=== PATIENT | female | born 1960 | race Caucasian/White ===

== ENCOUNTER 2018-11-06 11:44 | Day surgery (SDC) | payer BC ==
[2018-11-06] MEDS ORDERED: LACTATED RINGERS 1,000 ML IV SCH (12:06)
[2018-11-06 12:20] VITALS: RESP 16; TEMP 98.3
[2018-11-06] MEDS ORDERED: LIDOCAINE 1% 20 ML VIAL (10MG/ML) FOR IV START INTRADERMA ONE (12:28)
[2018-11-06] MEDS ORDERED: LIDOCAINE 1% INJ 10MG/ML (20 ML MDV) ONE (13:52)
[2018-11-06] MEDS ORDERED: GLYCOPYRROLATE 0.2 MG/ML 2 ML VIAL ONE (13:52)
[2018-11-06] MEDS ORDERED: PROPOFOL 10 MG/ML 20 ML VIAL IV ONE (13:52)
--- NOTE | 2018-11-06 14:58 | P.PCN ---
Date of Procedure: 11/06/18 Description of Procedure: BRIEF HISTORY: Patient is a 58-year-old pleasant female scheduled for an elective colonoscopy as a part of this part of surveillance after positive Cologard testing. Denies any change in bowel habits, blood per rectum, abdominal pain. Does report colon cancer in her grandmother. No prior colonoscopies. PROCEDURE PERFORMED: Colonoscopy with polypectomy. PREOPERATIVE DIAGNOSIS: Positive Cologard, no prior colonoscopies reported. ESTIMATED BLOOD LOSS: Minimal. IV sedation per Anesthesia. PROCEDURE: After informed consent was obtained, the patient, was brought into the endoscopy unit. IV sedation was administered by Anesthesia under continuous monitoring. Digital rectal examination was normal. Initially the Olympus CF-190 flexible video colonoscope was then inserted in the rectum, gradually advanced into the cecum without any difficulty. Careful examination was performed as the scope was gradually being withdrawn. Ileocecal valve and the appendiceal orifice were visualized and appeared normal. Prep was fair with a large amount of liquid stool with solid component of corn and other fibrous matter that made suctioning difficult as the material continued to clog the scope. Mucosa of the cecum, ascending colon, transverse colon, descending colon, sigmoid colon, and rectum which was visualized appeared normal, however complete visualization of the mucosa was prohibited by a fair prep with solid components which made suctioning impossible. 3 small polyps measuring 3 mm in the rectum, sigmoid colon and ascending colon were removed with cold snare polypectomy. Retroflexion was performed in the rectum and no lesions were seen. The patient tolerated the procedure well. IMPRESSION: Fair prep with solid components of fibrous material in the colon prohibiting suction incomplete visualization of the mucosa. 3 small polyps removed with cold snare from the ascending colon, sigmoid colon and rectum. RECOMMENDATIONS: Findings of this examination were discussed with the patient. Okay to resume diet. Await pathology from polypectomies. Would recommend repeat colonoscopy in 3-6 months with 2 day prep and pediatric scope given the patient's fair prep and positive Cologard.
[2018-11-06 15:20] VITALS: BP 132/77; PULSE 66
== END 2018-11-06 15:27 | disposition home or self-care (01) ==
LOC: ORWHC2ENDO 11:44
PROVIDERS: ATTEND Internal Medicine
DX: D12.5 Benign neoplasm of sigmoid colon (principal); K63.5 Polyp of colon; Z87.891 Personal history of nicotine dependence; Z80.0 Family history of malignant neoplasm of digestive organs; Z79.899 Other long term (current) drug therapy; Z90.710 Acquired absence of both cervix and uterus; I10 Essential (primary) hypertension
CPT/HCPCS: 88305; 45385; J2001; J2704

== ENCOUNTER → 2018-11-20 | Outpatient (CLI) | payer BC ==
--- NOTE | 2018-11-21 10:03 | MM ---
Reason for exam: screening (asymptomatic). Last mammogram was performed 3 years and 9 months ago. History: Patient is postmenopausal, has history of endometrial cancer at age 27, and is nulliparous. Family history of breast cancer in maternal cousin at age 30 and breast cancer in maternal aunt at age 60. Physical Findings: A clinical breast exam by your physician is recommended on an annual basis and results should be correlated with mammographic findings. MG 3D Screening Mammo W/Cad Bilateral CC and MLO view(s) were taken. Prior study comparison: February 17, 2015, right breast MG 3d work up w/cad RT. January 30, 2015, bilateral MG screening mammo w CAD. The breast tissue is extremely dense which could obscure a lesion on mammography. There is a stable right medial middle depth asymmetry. There are similar appearing bilateral calcifications. No suspicious abnormality on the left breast. Right breast architectural distortion MLO 3D 71/103 and CC 3D 48/81. ASSESSMENT: Incomplete: need additional imaging evaluation, BI-RAD 0 RECOMMENDATION: Special view mammogram of the right breast. (3D) If lesion persists on supplemental views, image directed ultrasound is recommended. [facility] will attempt to contact patient to return for supplemental views and ultrasound if indicated.
== END | disposition home or self-care (01) ==
LOC: RADMAMWWP 09:05
PROVIDERS: ATTEND Family Medicine
DX: Z12.31 Encounter for screening mammogram for malignant neoplasm of breast (principal)
CPT/HCPCS: 77063; 77067

== ENCOUNTER → 2019-01-17 | Outpatient (CLI) | payer BC ==
--- NOTE | 2019-01-18 08:29 | MM ---
Reason for exam: additional evaluation requested from abnormal screening. Last mammogram was performed 2 months ago. History: Patient is postmenopausal, has history of endometrial cancer at age 27, and is nulliparous. Family history of breast cancer in maternal cousin at age 30 and breast cancer in maternal aunt at age 60. Physical Findings: Nurse did not find any significant physical abnormalities on exam. MG 3D Work Up W/Cad RT Spot compression CC, spot compression MLO, and LM view(s) were taken of the right breast. Prior study comparison: November 20, 2018, bilateral MG 3d screening mammo w/cad. February 17, 2015, right breast MG 3d work up w/cad RT. The breast tissue is heterogeneously dense. This may lower the sensitivity of mammography. Right upper central architectural distortion persists on spot MLO 62/99 and spot CC 52/90. Not well seen on true lateral. These results were verbally communicated with the patient and result sheet given to the patient on 01/17/19. ASSESSMENT: Incomplete: need additional imaging evaluation, BI-RAD 0 RECOMMENDATION: Ultrasound of the right breast.
--- NOTE | 2019-01-18 09:10 | USB ---
Reason for exam: additional evaluation requested from abnormal screening. History: Patient is postmenopausal, has history of endometrial cancer at age 27, and is nulliparous. Family history of breast cancer in maternal cousin at age 30 and breast cancer in maternal aunt at age 60. US Breast Workup Limited RT Right limited breast ultrasound including focal area of concern, retroareolar and axilla demonstrates a 1.8 x 1.3 x 1.5cm cystic lesion at 2 o'clock and a 0.4 x 0.3 x 0.4cm lesion too small to characterize at 2 o'clock. After placement of a BB marker over the sonographic finding at 2 o'clock, the sonographic finding does not correlate with the suspicious mammographic finding. These results were verbally communicated with the patient and result sheet given to the patient on 01/17/19. ASSESSMENT: Suspicious, BI-RAD 4 RECOMMENDATION: Stereotactic core biopsy of the right breast. (3D) Patient would like to choose own surgeon, will notify Dr. Tamayo of her choice of surgeon. Possibly choosing [place] physician, Shana Hong. PRELIMINARY REPORT CALLED AND FAXED TO DR. TAMAYO ON 01/17/19.
== END | disposition home or self-care (01) ==
LOC: RADMAMWWP 08:43
PROVIDERS: ATTEND Family Medicine
DX: R92.8 Other abnormal and inconclusive findings on diagnostic imaging of breast (principal)
CPT/HCPCS: 77061; 77065

== ENCOUNTER → 2019-02-14 | Outpatient (CLI) | payer BC ==
[2019-02-14 11:00] VITALS: BP 139/78; PULSE 64; RESP 18; TEMP 98.1
--- NOTE | 2019-02-14 11:55 | P.GSHP ---
History of Present Illness H&P Date: 02/14/19 Chief Complaint: mammographic abnormality right breast Clementine is a 58-year-old white female who comes in consultation from Dr. Heather orozco. The patient on 11/20/2018 underwent a bilateral mammogram. No suspicious abnormality was noted in the left breast. In the right breast there was some architectural distortion noted and additional views were recommended. These were repeated on [id number]. This revealed right upper central architectural distortion which persisted on the MLO spot view. Additionally an ultrasound was performed it was noted that the sonographic findings did not correlate with suspicious mammographic findings. Sonographic findings revealed cystic lesions at 2:00. The recommendation was for a 3-D stereotactic core biopsy of the right breast. This was a routine mammogram. The patient does not show anything of concern in her breast. Her last mammogram was about 4 years ago. The patient states her breasts are lumpy but no new masses or lumps of concern had been noted by her. The patient has no abnormal nipple discharge or skin changes. The patient has no history of any recent trauma or infection in the breast. She has never had prior surgery on her breasts. She drinks about 1/2 cup of coffee/day. She does not drink pop. She does not smoke, she is not exposed to second hand smoke. She eats chocolate daily. Family History: mother: skin cancer, basal cell father: lung cancer, and basal cell skin cancer sister: melanoma, and basal cell cancer patient: basal cell cancer, three on back, shoulder, neck, lip, cervical cancer maternal aunt: breast cancer maternal cousin: dx. at 41, maternal grandmother: colon cancer maternal great aunt: breast cancer Hormonal History: menarche: 15 G0 hysterectomy one ovary left, for cervical cancer at 27 BCP: 4 years hormones: none Surgical history: 1. Hysterectomy 1 ovary left on for cervical cancer at the age of 27 2. Mohs chemosurgery and basal cell carcinoma 4 times 3. [place] teeth removed Medical history: Asthma High cholesterol Hypertension Social History: smoke: one pack per day for 20 years stopped at age 42 Alcohol: Negative Drugs: Negative - Constitutional Constitutional: Denies chills, Denies fever - EENT Eyes: denies blurred vision, denies pain Ears: deny: decreased hearing, tinnitus Ears, nose, mouth and throat: Denies headache, Denies sore throat - Breasts Breasts: bilateral: as per HPI - Cardiovascular Cardiovascular: Reports high blood pressure - Respiratory Comment: asthma former smoker - Gastrointestinal Gastrointestinal: Denies abdominal pain, Denies diarrhea, Denies nausea, Denies vomiting - Genitourinary (Female) Genitourinary: Denies dysuria, Denies hematuria - Menstruation Menstruation: Reports post hysterectomy - Musculoskeletal Comment: arthritis - Integumentary Comment: 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, 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 Integumentary: Denies pruritus, Denies rash - Neurological Neurological: Denies numbness, Denies weakness - Psychiatric Psychiatric: Reports anxiety, Denies depression - Endocrine Endocrine: Denies fatigue, Denies weight change - Hematologic/Lymphatic Comment: blood clotting runs in the family, her mother has had DVT, patient tested and unsure - Allergic/Immunologic Comment: multiple allergies Past Medical History Past Medical History: Asthma, Hyperlipidemia, Hypertension History of Any Multi-Drug Resistant Organisms: None Reported Past Surgical History: Hysterectomy Additional Past Surgical History / Comment(s): MULTIPLE SKIN CA REMOVED Past Anesthesia/Blood Transfusion Reactions: Postoperative Nausea & Vomiting (PONV) Past Psychological History: No Psychological Hx Reported Smoking Status: Former smoker Past Alcohol Use History: None Reported Past Drug Use History: None Reported - Past Family History Father Family Medical History: Cancer, Diabetes Mellitus Additional Family Medical History / Comment(s): Lung Cancer; Degenerative Heart Failure; Skin Cancer Mother Family Medical History: Cancer, Deep Vein Thrombosis (DVT) Additional Family Medical History / Comment(s): Blood Clots; Kidney Failure; Skin Cancer Brother(s) Additional Family Medical History / Comment(s): Stroke; Sister(s) Family Medical History: Cancer Additional Family Medical History / Comment(s): Basal cell carcinoma; Melanoma; Medications and Allergies Home Medications Medication Instructions Recorded Confirmed Type Cetirizine HCl [Zyrtec] 10 mg PO QAM 11/06/18 02/14/19 History Ascorbic Acid [Vitamin C] 1,000 mg PO QAM 02/14/19 02/14/19 History Cholecalciferol [Vitamin D3 (25 2,000 unit PO QAM 02/14/19 02/14/19 History Mcg = 1000 Iu)] Allergies Allergy/AdvReac Type Severity Reaction Status Date / Time No Known Allergies Allergy Verified 12/18/19 10:46 Surgical - Exam Vital Signs Temp Pulse Resp BP Pulse Ox 98.1 F 64 18 139/78 97 02/14/19 10:48 02/14/19 10:48 02/14/19 10:48 02/14/19 10:48 02/14/19 10:48 BMI 32.4 - General well developed, well nourished, no distress - Eyes normal ocular movement - ENT normal pinna, normal nares, no hearing loss, no congestion - Neck no masses, trachea midline, no lymphadectomy, no venous distension - Respiratory normal expansion, normal respiratory effort, clear to percussion, clear to auscultation - Cardiovascular Rhythm: regular Heart Sounds: normal: S1, S2 - Abdomen Abdomen: soft, non tender, no guarding, no rigid, no rebound - Integumentary normal turgor scars on back from basal cell resection - Neurologic no disoriented, no combative - Musculoskeletal normal gait, normal posture - Psychiatric oriented to time, oriented to person, oriented to place, speech is normal, memory intact breast exam: right breasts: Multiple positional exam no dominant masses or nodules of concern, breast tissue is dense, fibrocystic changes Right axilla: No adenopathy of concern Left breast: Slightly larger than right breast, multiple positional exam dense fibrocystic changes no dominant masses or nodules of concern Left axilla: No adenopathy of concern Bra size 42: DD Ptosis grade 2/3 Results mammogram and ultrasound report reviewed Assessment and Plan Assessment: Impression: 1. BMI 32.4 2. possible clotting abnormality 3. Dense fibrocystic breast changes 4. Radiographic abnormality right breast 5. Ultrasound does not correspond with radiographic abnormality therefore 3-D stereotactic core biopsy is recommended that the area is only seen on the MLO view and on spot CC view 6. Asthma 7. Hypertension 8. Anxiety 9. history of basal cell cancer Plan: 1. schedule for 3-D stereotactic core biopsy 2. Patient will obtain genetic profiling on her mother's clotting abnormality and present this information to us and her primary care doctor 3. Medical management of asthma/hypertension/anxiety 4. Discussion of stereotactic core biopsy risks and benefits, and to reduce anxiety Risks and benefits of the procedure were discussed with the patient. Additionally we have discussed the fact that After the biopsy it will take approximately a week to get the pathology results. She understands and wishes to proceed. Encounter 40 minutes, > 50% of time spent in planning and counseling. Time with Patient: Greater than 30
== END ==
LOC: WWCWWP 10:35
PROVIDERS: ATTEND Surgery
DX: Z53.9 Procedure and treatment not carried out, unspecified reason (principal)

== ENCOUNTER → 2019-03-08 | Outpatient (CLI) | payer BC ==
[2019-03-08 10:48] VITALS: BP 155/79; PULSE 74; RESP 16; TEMP 97.8
--- NOTE | 2019-03-08 11:30 | P.PN ---
Subjective Progress Note Date: 03/08/19 Principal diagnosis: atypical hyperplasia of stero biopsy This is a 58-year-old white female status post 3-D stereotactic core biopsy of the right breast performed on 1220. The pathology revealed focal atypical ductal hyperplasia in a background of fibrocystic changes. The patient post procedure states tolerated the procedure without difficulty. She did however develop some ecchymosis at the biopsy site. She has not had any fever or chills. She has a strong family history of skin cancer, a cousin had breast cancer at 41. No one has had genetic testing. Family History: mother: skin cancer, basal cell father: lung cancer, and basal cell skin cancer sister: melanoma, and basal cell cancer patient: basal cell cancer, three on back, shoulder, neck, lip, cervical cancer maternal aunt: breast cancer maternal cousin: breast cancer dx. at 41, maternal grandmother: colon cancer maternal great aunt: breast cancer Hormonal History: menarche: 15 G0 hysterectomy one ovary left, for cervical cancer at 27 BCP: 4 years hormones: none Surgical history: 1. Hysterectomy 1 ovary left on for cervical cancer at the age of 27 2. Mohs chemosurgery and basal cell carcinoma 4 times 3. [place] teeth removed Medical history: Asthma High cholesterol Hypertension Social History: smoke: one pack per day for 20 years stopped at age 42 Alcohol: Negative Drugs: Negative - Constitutional Constitutional: Denies chills, Denies fever - EENT Eyes: denies blurred vision, denies pain Ears: deny: decreased hearing, tinnitus Ears, nose, mouth and throat: Denies headache, Denies sore throat - Breasts Breasts: bilateral: as per HPI - Cardiovascular Cardiovascular: Reports high blood pressure - Respiratory Comment: asthma former smoker - Gastrointestinal Gastrointestinal: Denies abdominal pain, Denies diarrhea, Denies nausea, Denies vomiting - Genitourinary (Female) Genitourinary: Denies dysuria, Denies hematuria - Menstruation Menstruation: Reports post hysterectomy - Musculoskeletal Comment: arthritis - Integumentary Comment: 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, 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 Integumentary: Denies pruritus, Denies rash - Neurological Neurological: Denies numbness, Denies weakness - Psychiatric Psychiatric: Reports anxiety, Denies depression - Endocrine Endocrine: Denies fatigue, Denies weight change - Hematologic/Lymphatic Comment: blood clotting runs in the family, her mother has had DVT, patient tested and unsure - Allergic/Immunologic Comment: multiple allergies Past Medical History Past Medical History: Asthma, Hyperlipidemia, Hypertension History of Any Multi-Drug Resistant Organisms: None Reported Past Surgical History: Hysterectomy Additional Past Surgical History / Comment(s): MULTIPLE SKIN CA REMOVED Past Anesthesia/Blood Transfusion Reactions: Postoperative Nausea & Vomiting (PONV) Past Psychological History: No Psychological Hx Reported Smoking Status: Former smoker Past Alcohol Use History: None Reported Past Drug Use History: None Reported - Past Family History Father Family Medical History: Cancer, Diabetes Mellitus Additional Family Medical History / Comment(s): Lung Cancer; Degenerative Heart Failure; Skin Cancer Mother Family Medical History: Cancer, Deep Vein Thrombosis (DVT) Additional Family Medical History / Comment(s): Blood Clots; Kidney Failure; Skin Cancer Brother(s) Additional Family Medical History / Comment(s): Stroke; Sister(s) Family Medical History: Cancer Additional Family Medical History / Comment(s): Basal cell carcinoma; Melanoma; Objective - Vital Signs Vital signs: Vital Signs Temp 97.8 F 03/08/19 10:45 Pulse 74 03/08/19 10:45 Resp 16 03/08/19 10:45 BP 155/79 03/08/19 10:45 Pulse Ox 99 03/08/19 10:45 Intake & Output 03/07/19 03/08/19 03/08/19 18:59 06:59 18:59 Weight 87.997 kg - Exam BMI 32.2 - Constitutional General appearance: Present: obese - EENT EENT Comment(s): conjunctiva pink Eyes: Present: EOMI ENT: Present: hearing grossly normal - Neck Details: no lymphadenopathy Neck: Present: normal ROM - Respiratory Respiratory: bilateral: CTA - Cardiovascular Rhythm: regular Heart sounds: normal: S1, S2 - Integumentary Integumentary: Present: normal turgor - Musculoskeletal Musculoskeletal: Present: gait normal - Psychiatric Psychiatric: Present: A&O x's 3, appropriate affect, intact judgment & insight - Additional findings Additional findings: Right breast: Status post stereotactic core biopsy: Ecchymosis at biopsy site No evidence of any infection Assessment and Plan Assessment: Impression: Asthma High cholesterol Hypertension basal cell cancer multiple sites, follows with dermatology patient personal history of cervical cancer abnormal stero biopsy/atypia ? clotting disorder in mother, patient states she does not have a problem with bleeding Plan: 1. Needle localization and excisional lumpectomy lesion in the right breast 2. Medical management of medical conditions 3. clearance from Dr. Tamayo Risks and benefits of the procedure were discussed with the patient she understands and wishes to proceed. Cc: Dr. Tamayo encounter 25 minutes, > 50% of time spent in planning and counselling Time with Patient: Less than 30
== END ==
LOC: WWCWWP 10:39
PROVIDERS: ATTEND Surgery
DX: Z53.9 Procedure and treatment not carried out, unspecified reason (principal)

== ENCOUNTER → 2019-08-03 | Outpatient (CLI) | payer BC ==
[2019-08-03 09:56] VITALS: BP 135/77; PULSE 73; RESP 18; TEMP 98.1
--- NOTE | 2019-08-03 10:17 | P.PN ---
Subjective Progress Note Date: 08/03/19 Principal diagnosis: Atypical hyperplasia on core biopsy of right breast Clementine is a 58-year-old white female who was seen in consultation for Dr. Heather orozco. The patient on 11/20/2018 underwent a bilateral mammogram. No suspicious abnormality was noted in the left breast. In the right breast there was some architectural distortion noted and additional views were recommended. These were repeated on [id number]. This revealed right upper central architectural distortion which persisted on the MLO spot view. Additionally an ultrasound was performed it was noted that the sonographic findings did not correlate with suspicious mammographic findings. Sonographic f indings revealed cystic lesions at 2:00. The recommendation was for a 3-D stereotactic core biopsy of the right breast. This was a routine mammogram. The patient does not complain of anything of c oncern in her breast. Her last mammogram was about 4 years ago. The patient stated her breasts were lumpy but no new masses or lumps of concern had been noted by her. The patient had no abnormal nipple discharge or skin changes. The patient had no history of any recent trauma or infection in the breast. She had never had prior surgery on her breasts. She had a 3D stero biopsy on 03-01-19, this showed atypical hyperplasia. She was scheduled for a needle localization and biopsy in May which was postponed secondary to the felipe virus. She drinks about 1/2 cup of coffee/day. She does not drink pop. She does not smoke, she is not exposed to second hand smoke. She eats chocolate daily. Family History: mother: skin cancer, basal cell father: lung cancer, and basal cell skin cancer sister: melanoma, and basal cell cancer patient: basal cell cancer, three on back, shoulder, neck, lip, cervical cancer maternal aunt: breast cancer maternal cousin: dx. at 41, maternal grandmother: colon cancer maternal great aunt: breast cancer Hormonal History: menarche: 15 G0 hysterectomy one ovary left, for cervical cancer at 27 BCP: 4 years hormones: none Surgical history: 1. Hysterectomy 1 ovary left on for cervical cancer at the age of 27 2. Mohs chemosurgery and basal cell carcinoma 4 times 3. [place] teeth removed Medical history: Asthma High cholesterol Hypertension Social History: smoke: one pack per day for 20 years stopped at age 42 Alcohol: Negative Drugs: Negative - Constitutional Constitutional: Denies chills, Denies fever - EENT Eyes: denies blurred vision, denies pain Ears: deny: decreased hearing, tinnitus Ears, nose, mouth and throat: Denies headache, Denies sore throat - Breasts Breasts: bilateral: as per HPI - Cardiovascular Cardiovascular: Reports high blood pressure - Respiratory Comment: asthma former smoker - Gastrointestinal Gastrointestinal: Denies abdominal pain, Denies diarrhea, Denies nausea, Denies vomiting - Genitourinary (Female) Genitourinary: Denies dysuria, Denies hematuria - Menstruation Menstruation: Reports post hysterectomy - Musculoskeletal Comment: arthritis - Integumentary Comment: 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, 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 Integumentary: Denies pruritus, Denies rash - Neurological Neurological: Denies numbness, Denies weakness - Psychiatric Psychiatric: Reports anxiety, Denies depression - Endocrine Endocrine: Denies fatigue, Denies weight change - Hematologic/Lymphatic Comment: blood clotting runs in the family, her mother has had DVT, patient tested and unsure - Allergic/Immunologic Comment: multiple allergies Past Medical History Past Medical History: Asthma, Hyperlipidemia, Hypertension History of Any Multi-Drug Resistant Organisms: None Reported Past Surgical History: Hysterectomy Additional Past Surgical History / Comment(s): MULTIPLE SKIN CA REMOVED Past Anesthesia/Blood Transfusion Reactions: Postoperative Nausea & Vomiting (PONV) Past Psychological History: No Psychological Hx Reported Smoking Status: Former smoker Past Alcohol Use History: None Reported Past Drug Use History: None Reported - Past Family History Father Family Medical History: Cancer, Diabetes Mellitus Additional Family Medical History / Comment(s): Lung Cancer; Degenerative Heart Failure; Skin Cancer Mother Family Medical History: Cancer, Deep Vein Thrombosis (DVT) Additional Family Medical History / Comment(s): Blood Clots; Kidney Failure; Skin Cancer Brother(s) Additional Family Medical History / Comment(s): Stroke; Sister(s) Family Medical History: Cancer Additional Family Medical History / Comment(s): Basal cell carcinoma; Melanoma; Medications and Allergies Home Medications Medication Instructions Recorded Confirmed Type Cetirizine HCl [Zyrtec] 10 mg PO QAM 11/06/18 02/14/19 History Ascorbic Acid [Vitamin C] 1,000 mg PO QAM 02/14/19 02/14/19 History Cholecalciferol [Vitamin D3 (25 2,000 unit PO QAM 02/14/19 02/14/19 History Mcg = 1000 Iu)] Allergies Allergy/AdvReac Type Severity Reaction Status Date / Time No Known Allergies Allergy Verified 02/14/19 10:46 Objective - Vital Signs Vital signs: Vital Signs Temp 98.1 F 08/03/19 09:53 Pulse 73 08/03/19 09:53 Resp 18 08/03/19 09:53 BP 135/77 08/03/19 09:53 Pulse Ox 98 08/03/19 09:53 Intake & Output 08/02/19 08/03/19 08/03/19 18:59 06:59 18:59 Weight 88.904 kg - EENT Eyes: Present: EOMI ENT: Present: hearing grossly normal - Neck Neck: Present: normal ROM - Respiratory Respiratory: bilateral: CTA - Cardiovascular Rhythm: regular Heart sounds: normal: S1, S2 - Gastrointestinal General gastrointestinal: Present: normal bowel sounds, soft - Integumentary Integumentary: Present: normal turgor - Musculoskeletal Musculoskeletal: Present: gait normal - Psychiatric Psychiatric: Present: A&O x's 3, appropriate affect, intact judgment & insight - Additional findings Additional findings: Breast exam: BRA 42DD inspection: ptosis grade 2/3 Palpation Right breast: Multi-positional exam no dominant masses or nodules of concern Right axilla: No adenopathy of concern Left breast: Multi-positional exam no dominant masses or nodules of concern Left axilla: No adenopathy of concern Assessment and Plan Assessment: Impression: 1. right breast atypia on core biopsy Plan: 1. Needle localization right breast lumpectomy, possible onco-plastic tissue transfer, possibly done via mastopexy incision Risk and benefits of procedure discussed with the patient. She understands and wishes to proceed. Risks include but are not limited to bleeding, infection, reaction to the anesthetic. Patient understands and this is scheduled for the near future CC: Dr. Tamayo encounter 20 minutes, > 50% of time ion planning and counselling
== END | disposition home or self-care (01) ==
LOC: WWCWWP 09:35
PROVIDERS: ATTEND Surgery
DX: Z53.9 Procedure and treatment not carried out, unspecified reason (principal)

== ENCOUNTER 2019-08-14 10:26 | Day surgery (SDC) | payer BC ==
[2019-08-13 08:14] VITALS: BMI 32.9
[~2019-08-14 10:26] MED LIST: DEXAMETHASONE SOD PHOSPHATE 10 MG/ML 1 ML VIAL IV ONE; HEPARIN SODIUM,PORCINE 5,000 UNIT/ML 1 ML VIAL SQ ONE; HYDROmorphone 0.5 MG/0.5 ML SYRINGE IVP PRN; LACTATED RINGERS 1,000 ML IV SCH; LIDOCAINE 1% (10MG/ML) FOR IV START INTRADERMA PRN; ONDANSETRON 4 MG/2 ML VIAL IVP ONE; Pre Op ABX Message 1 EACH MISC MISCELLANE ONE; SCOPOLAMINE 1.5MG/72HR PATCH TRANSDERM ONE
[2019-08-14] MEDS ORDERED: LACTATED RINGERS 1,000 ML IV ONE ×3 (10:55→15:09)
[2019-08-14] MEDS ORDERED: LIDOCAINE 1% INJ 10MG/ML (20 ML MDV) SQ ONE ×2 (12:13→16:13)
[2019-08-14] MEDS ORDERED: MIDAZOLAM 2 MG/2 ML VIAL ONE (14:59)
[2019-08-14] MEDS ORDERED: SUCCINYLCHOLINE CHLORIDE 100 MG/5 ML SYR IV ONE (14:59)
[2019-08-14] MEDS ORDERED: ePHEDrine SULFATE/0.9% NACL/PF 50 MG/5 ML SYRINGE IV ONE (14:59)
[2019-08-14] MEDS ORDERED: LIDOCAINE 1% INJ 10MG/ML (20 ML MDV) ONE (14:59)
[2019-08-14] MEDS ORDERED: fentaNYL (PF) 50 MCG/ML 2 ML AMP ONE (14:59)
[2019-08-14] MEDS ORDERED: PHENYLEPHRINE-0.9% NACL SYG 1 MG/10 ML SYRINGE ONE (14:59)
[2019-08-14] MEDS ORDERED: ONDANSETRON 4 MG/2 ML VIAL ONE (14:59)
--- NOTE | 2019-08-14 16:19 | P.OP ---
Date of Procedure: 08/14/19 Preoperative Diagnosis: Core biopsy of right breast with atypia Postoperative Diagnosis: Same Procedure(s) Performed: needle localization and excisional biopsy right breast Anesthesia: MANE Surgeon: Sheree Mccoy Estimated Blood Loss (ml): 5 IV fluids (ml): 600 Pathology: other (breast tissue) Condition: stable Disposition: same day Indications for Procedure: core Biopsy with atypia Operative Findings: Dense breast tissue Description of Procedure: The patient is a 59-year-old white female who had a core biopsy of the right breast which revealed atypia. She was recommended to undergo needle localization and excisional biopsy. Following needle localization of the area of concern in the right breast the patient was taken to the operating room. Following induction of general anesthesia the breast was prepped and draped in a sterile fashion. An incision was made and carried down to the shaft of the needle. The needle was brought into the wound. Surrounding tissue was excised. After assured that hemostasis was attained, titanium clips were placed and the deep tissues were brought together using 3-0 Vicryl suture. The specimen was painted for orientation. Radiograph of the specimen revealed that the area of concern had been removed. The subcutaneous tissues were closed using 3-0 Vicryl suture. The skin was closed using 4-0 Monocryl. The patient tolerated the procedure in stable condition.
--- NOTE | 2019-08-14 16:20 | P.DS ---
Providers Attending physician: Sheree Mccoy Primary care physician: Emelia Tamayo Plan - Discharge Summary Discharge Rx Participant: Yes New Discharge Prescriptions: No Action Cetirizine HCl [Zyrtec] 10 mg PO QAM Cholecalciferol [Vitamin D3 (25 Mcg = 1000 Iu)] 5,000 unit PO QAM Ascorbic Acid [Vitamin C] 1,000 mg PO QAM Ipratropium/Albuter 20-100Mcg [Combivent Respimat 20-100Mcg Inhaler] 1 puff PO DAILY PRN PRN Reason: Allergic Reaction Fluticasone/Salmeterol [Advair 500-50 Diskus] 1 inhalation PO DAILY ALPRAZolam [Xanax] 0.5 mg PO DAILY PRN PRN Reason: Anxiety Lisinopril-Hctz 20-25 mg [Zestoretic 20-25] 1 tab PO DAILY Discharge Medication List Cetirizine HCl [Zyrtec] 10 mg PO QAM 11/06/18 [History] Ascorbic Acid [Vitamin C] 1,000 mg PO QAM 02/14/19 [History] Cholecalciferol [Vitamin D3 (25 Mcg = 1000 Iu)] 5,000 unit PO QAM 02/14/19 [History] ALPRAZolam [Xanax] 0.5 mg PO DAILY PRN 08/03/19 [History] Fluticasone/Salmeterol [Advair 500-50 Diskus] 1 inhalation PO DAILY 08/03/19 [History] Ipratropium/Albuter 20-100Mcg [Combivent Respimat 20-100Mcg Inhaler] 1 puff PO DAILY PRN 08/03/19 [History] Lisinopril-Hctz 20-25 mg [Zestoretic 20-25] 1 tab PO DAILY 08/13/19 [History] Follow up Appointment(s)/Referral(s): Sheree Mccoy MD [STAFF PHYSICIAN] - 1 Week Activity/Diet/Wound Care/Special Instructions: Do not drive for at least 24 hours from discharge May shower after 48 hours Wear bra at all times Discharge Disposition: HOME SELF-CARE
[2019-08-14 16:33] VITALS: TEMP 96.8
[2019-08-14 16:48] VITALS: RESP 16
[2019-08-14 17:27] VITALS: BP 135/76; PULSE 88
--- NOTE | 2019-08-15 10:34 | MM ---
EXAMINATION TYPE: MG pre op needle loc RT, MG surgical specimen RT DATE OF EXAM: 08/14/2019 12:56 PM COMPARISON: NONE HISTORY: Targeting of microclip marker Informed consent was obtained and all the patient's questions were answered. The clip in question was localized mammographically. The standard sterile technique was utilized, as well as appropriate local anesthesia with 1% Lidocaine . Localization needle followed by placement of a guidewire was performed under mammographic guidance. Verification images demonstrate appropriate deployment of the guidewire. The patient tolerated the procedure well and left the department in stable condition. Specimen radiograph demonstrates the left in question to reside within the specimen. IMPRESSION: Successful needle localization and open biopsy right breast with pathology results pending . Pathology Results: Malignant RIGHT BREAST, NEEDLE LOCALIZATION EXCISION: Invasive well differentiated ductal carcinoma (Grade 1), margins negative. Lobular neoplasia (ALH/LCIS) and background fibrocystic changes. See Surgical Pathology Cancer Case Summary and Comment. Recommendation Surgical consult of the right breast Oncologic management. JAMES
== END 2019-08-14 17:39 | disposition home or self-care (01) ==
LOC: OR 10:26
PROVIDERS: ATTEND Surgery
DX: C50.911 Malignant neoplasm of unspecified site of right female breast (principal); Z17.0 Estrogen receptor positive status [ER+]; Z90.710 Acquired absence of both cervix and uterus; Z98.890 Other specified postprocedural states; J45.909 Unspecified asthma, uncomplicated; E78.5 Hyperlipidemia, unspecified; E78.00 Pure hypercholesterolemia, unspecified; I10 Essential (primary) hypertension; Z87.891 Personal history of nicotine dependence; Z85.828 Personal history of other malignant neoplasm of skin; F41.9 Anxiety disorder, unspecified; F32.9 Major depressive disorder, single episode, unspecified; Z80.49 Family history of malignant neoplasm of other genital organs; Z80.3 Family history of malignant neoplasm of breast; Z80.8 Family history of malignant neoplasm of other organs or systems; Z80.0 Family history of malignant neoplasm of digestive organs; Z80.1 Family history of malignant neoplasm of trachea, bronchus and lung; Z83.3 Family history of diabetes mellitus; Z82.49 Family history of ischemic heart disease and other diseases of the circulatory system; Z84.1 Family history of disorders of kidney and ureter; Z82.3 Family history of stroke; Z79.899 Other long term (current) drug therapy; Z79.51 Long term (current) use of inhaled steroids; Z88.0 Allergy status to penicillin
CPT/HCPCS: 19125; 88342; 88307; 88341; 76098; J2250; J1644; J1100; J2405; J2001; J3010; J2370; J0330

== ENCOUNTER → 2019-08-23 | Outpatient (CLI) | payer BC ==
[2019-08-23 16:36] VITALS: BP 151/92; PULSE 85; RESP 18; TEMP 98.4
--- NOTE | 2019-08-23 17:06 | P.PN ---
Progress Note - Text Progress Note Date: 08/23/19 This is a 59-year-old white female status post right breast partial mastectomy after needle localization of an area of radial scar. Pathology revealed invasive well-differentiated ductal carcinoma, margins were negative. This was a grade 1 year. Positive HER-2 negative tumor. I've discussed this with the patient and surgical options which would include sentinel node biopsy possible axillary node dissection for complete staging. If she does not have a mastectomy she would most likely be recommended to have radiation therapy. Additionally another option would be mastectomy us or minus reconstruction with sentinel node biopsy possible axillary node dissection. We are not recommending a mastectomy at this time. We'll also discussed the possibility of an MRI however the patient has had abdominal surgery and has multiple medical clips in place and was told to not have an MRI. Her case is going to be presented at tumor board. The patient is doing well post procedure without complaints. Physical exam: Lungs: Clear Heart: Regular rate and rhythm Incision: Clean and dry Impression/Plan 1. Invasive ductal carcinoma right breast status post needle localization partial mastectomy for radial scar 2. Patient's case to be presented at tumor board 3. Patient to follow up after presentation at tumor board CC: Brayden Albarado encounter 15 mintues, > 50% of time in planning and counselling
== END | disposition home or self-care (01) ==
LOC: WWCWWP 16:15
PROVIDERS: ATTEND Surgery
DX: Z53.9 Procedure and treatment not carried out, unspecified reason (principal)

== ENCOUNTER → 2019-09-14 | Outpatient (CLI) | payer BC ==
--- NOTE | 2019-09-14 10:06 | XR ---
EXAMINATION TYPE: XR abdomen 1V DATE OF EXAM: 09/14/2019 COMPARISON: None INDICATION: Pre-MRI evaluation TECHNIQUE: Single view abdomen spine view FINDINGS: There is a normal bowel gas pattern. Psoas margins are normal. No organomegaly is present. Multiple surgical clips are present from the patient's hysterectomy. This is an old surgery suggestin g these may be ferromagnetic. Given the volume and the options MRI should be deferred. Images were re viewed with Dr. Raza Painter. Consensus review the images was performed. IMPRESSION: 1. No acute abdominal process. 2. Multiple surgical clips. MRI is not recommended.
== END | disposition home or self-care (01) ==
LOC: RADXRMAIN 09:28
PROVIDERS: ATTEND Surgery
DX: Z90.710 Acquired absence of both cervix and uterus (principal); Z88.0 Allergy status to penicillin
CPT/HCPCS: 74018

== ENCOUNTER → 2019-10-15 | Outpatient (CLI) | payer BC ==
--- NOTE | 2019-10-15 13:14 | MM ---
Reason for exam: additional evaluation requested from prior study. Last mammogram was performed 9 months ago. History: Patient is postmenopausal, has history of breast cancer at age 59, has history of endometrial cancer at age 27, and is nulliparous. Family history of breast cancer in maternal cousin at age 30 and breast cancer in maternal aunt at age 60. Malignant MG pre op needle loc RT of the right breast, August 14, 2019. Physical Findings: Nurse did not find any significant physical abnormalities on exam. MG 3D Diag Mammo W/Cad ALVIN Bilateral CC and MLO view(s) were taken. Prior study comparison: January 17, 2019, right breast MG 3d work up w/cad RT. November 20, 2018, bilateral MG 3d screening mammo w/cad. The breast tissue is extremely dense which could obscure a lesion on mammography. Post lumpectomy change 1 o'clock right breast. Stable medial grouped calcifications on the right. Very dense tissue. Ultrasound can evaluate. These results were verbally communicated with the patient and result sheet given to the patient on 10/15/19. ASSESSMENT: Incomplete: need additional imaging evaluation, BI-RAD 0 RECOMMENDATION: Ultrasound of both breasts. MTDD
--- NOTE | 2019-10-15 13:16 | USB ---
Reason for exam: additional evaluation requested from abnormal screening. History: Patient is postmenopausal, has history of breast cancer at age 59, has history of endometrial cancer at age 27, and is nulliparous. Family history of breast cancer in maternal cousin at age 30 and breast cancer in maternal aunt at age 60. Malignant MG pre op needle loc RT of the right breast, August 14, 2019. US Breast BILAT Right complete breast ultrasound includes all four quadrants, the retroareolar region and axilla. Finding demonstrates a 1.9 x 1.3 x 1.5cm cystic lesion at 2 o'clock, a 0.4 x 0.4 x 0.5cm cystic lesion at 9 o'clock and a large scar at 12 o'clock. Left complete breast ultrasound includes all four quadrants, the retroareolar region and axilla. Finding demonstrates a 0.4 x 0.3 x 0.4cm lesion too small to characterize at 5 o'clock, a 0.5 x 0.4 x 0.5cm cystic cluster at 8 o'clock and a 1.2 x 0.5 x 0.9cm cystic cluster at 11 o'clock versus complex cyst, 6 month follow up recommended. These results were verbally communicated with the patient and result sheet given to the patient on 10/15/19. ASSESSMENT: Probably benign, BI-RAD 3 RECOMMENDATION: Ultrasound of the left breast in 6 months. (11 o'clock)
== END | disposition home or self-care (01) ==
LOC: RADMAMWWP 10:14
PROVIDERS: ATTEND Surgery
DX: R92.8 Other abnormal and inconclusive findings on diagnostic imaging of breast (principal)
CPT/HCPCS: 77062; 77066

== ENCOUNTER → 2019-10-19 | Outpatient (CLI) | payer BC ==
[2019-10-19 11:57] VITALS: BP 130/84; RESP 18; TEMP 98
--- NOTE | 2019-10-19 12:16 | P.PN ---
Subjective Progress Note Date: 10/19/19 Principal diagnosis: right breast cancer stage IA Clementine is a 58-year-old white female who was seen in consultation from Dr. Heather Owen in January,. The patient on 11/20/2018 underwent a bilateral mammogram. No suspicious abnormality was noted in the left breast. In the right breast there was some architectural distortion noted and additional views were recommended. These were repeated on 11190308. This revealed right upper central architectural distortion which persisted on the MLO spot view. Additionally an ultrasound was performed it was noted that the sonographic findings did not correlate with suspicious mammographic findings. Sonographic findings revealed cystic lesions at 2:00. The recommendation was for a 3-D stereotactic core biopsy of the right breast. This was a routine mammogram. The patient did not note anything of concern in her breast. Her last mammogram prior to this was about 4 years ago. The patient stated her breasts were lumpy but no new masses or lumps of concern had been noted by her. The patient had no abnormal nipple discharge or skin changes. The patient had no history of any recent trauma or infection in the breast. She had never had prior surgery on her breasts. She had a stereotactic core biopsy of [facility] on 1219. This revealed focal atypical ductal hyperplasia in the background of fibrocystic changes. Her procedure for excision was delayed secondary to cold blood 19. On she underwent a needle localization and excisional biopsy of the area of concern. This revealed invasive well-differentiated ductal carcinoma grade 1. Also LCIS was noted. The lesion was ER/NE positive and HER-2/kevyn negative. It was grade 1. Her case was presented at tumor board and it was recommended she undergo a sentinel node biopsy. However there was some concern on her radiographs that there was an additional area of concern in her right breast. Upon review of her mammogram there was suggestion that she may benefit from an MRI. However the patient had abdominal surgery approximately 32 years ago multiple clips were placed after which she was told that an MRI was not a good choice. Abdominal x-ray was performed which did reveal multiple clips. The radiologist recommended against a MRI of the breast. The patient therefore had a repeat bilateral mammogram and [id number] after which ultrasound of the right breast was performed. No specific lesions warranting biopsy were noted at this time and either breast and on the ultrasound the recommendation was for repeat ultrasound of the left breast in 6 months this particular attention to the 11 o'clock position. Oncotype score was obtained and this was 1. She has been started on an antiestrogen agent. She drinks about 1/2 cup of coffee/day. She does not drink pop. She does not smoke, she is not exposed to second hand smoke. She eats chocolate daily. Family History: mother: skin cancer, basal cell father: lung cancer, and basal cell skin cancer sister: melanoma, and basal cell cancer patient: basal cell cancer, three on back, shoulder, neck, lip, cervical cancer maternal aunt: breast cancer maternal cousin: dx. at 41, maternal grandmother: colon cancer maternal great aunt: breast cancer Hormonal History: menarche: 15 G0 hysterectomy one ovary left, for cervical cancer at 27 BCP: 4 years hormones: none Surgical history: 1. Hysterectomy 1 ovary left on for cervical cancer at the age of 27 2. Mohs chemosurgery and basal cell carcinoma 4 times 3. [place] teeth removed Medical history: Asthma High cholesterol Hypertension Social History: smoke: one pack per day for 20 years stopped at age 42 Alcohol: Negative Drugs: Negative - Constitutional Constitutional: Denies chills, Denies fever - EENT Eyes: denies blurred vision, denies pain Ears: deny: decreased hearing, tinnitus Ears, nose, mouth and throat: Denies headache, Denies sore throat - Breasts Breasts: bilateral: as per HPI - Cardiovascular Cardiovascular: Reports high blood pressure - Respiratory Comment: asthma former smoker - Gastrointestinal Gastrointestinal: Denies abdominal pain, Denies diarrhea, Denies nausea, Denies vomiting - Genitourinary (Female) Genitourinary: Denies dysuria, Denies hematuria - Menstruation Menstruation: Reports post hysterectomy - Musculoskeletal Comment: arthritis - Integumentary Comment: 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, 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 Integumentary: Denies pruritus, Denies rash - Neurological Neurological: Denies numbness, Denies weakness - Psychiatric Psychiatric: Reports anxiety, Denies depression - Endocrine Endocrine: Denies fatigue, Denies weight change - Hematologic/Lymphatic Comment: blood clotting runs in the family, her mother has had DVT, patient tested and unsure - Allergic/Immunologic Comment: multiple allergies Past Medical History Past Medical History: Asthma, Hyperlipidemia, Hypertension History of Any Multi-Drug Resistant Organisms: None Reported Past Surgical History: Hysterectomy Additional Past Surgical History / Comment(s): MULTIPLE SKIN CA REMOVED Past Anesthesia/Blood Transfusion Reactions: Postoperative Nausea & Vomiting (PONV) Past Psychological History: No Psychological Hx Reported Smoking Status: Former smoker Past Alcohol Use History: None Reported Past Drug Use History: None Reported Objective - Vital Signs Vital signs: Vital Signs Temp 98.0 F 10/19/19 11:54 Pulse Resp 18 10/19/19 11:54 BP 130/84 10/19/19 11:54 Pulse Ox Intake & Output 10/18/19 10/19/19 10/19/19 18:59 06:59 18:59 Weight 85.275 kg - Exam BMI 31.3 - Constitutional General appearance: Present: average body habitus - EENT Eyes: Present: EOMI ENT: Present: hearing grossly normal - Neck Neck: Present: normal ROM - Respiratory Respiratory: bilateral: CTA - Cardiovascular Rhythm: regular Heart sounds: normal: S1, S2 - Gastrointestinal General gastrointestinal: Present: normal bowel sounds, soft - Integumentary Integumentary: Present: normal turgor - Musculoskeletal Musculoskeletal: Present: gait normal - Psychiatric Psychiatric: Present: A&O x's 3, appropriate affect, intact judgment & insight - Additional findings Additional findings: breast exam: BRA: 42DD inspection: grade 3 ptosis bilateral palpation: right breast: Positional exam fibrocystic changes, no dominant masses or nodules of concern, well-healed scar from prior lumpectomy Right axilla: No adenopathy of concern Left breast: Multiple incisional exam no dominant masses or nodules of concern, fibrocystic changes Left axilla: No adenopathy of concern Assessment and Plan Assessment: Impression: 1. Stage IA right breast cancer completely excised/excision done for atypia. 2. Case was presented at tumor board recommendation for sentinel node biopsy and right 3. Radiographic evaluation recommends repeat left breast ultrasound in 6 months/at this time no further biopsies were recommended prior to intervention, last bilateral mammogram was done [id number] Plan: 1. [place] injection and sentinel node biopsy right breast, possible axillary node dissection 2. Left breast ultrasound in 6 months 3. Close surveillance right breast 4. Follow-up with radiation oncology 5. Follow-up with medical oncology, patient presently on an aromatase inhibitor CC: Dr. Tamayo Risks and benefits of the procedure discussed with the patient. Risks include but are not limited to bleeding infection reaction to the anesthetic. There is a possibility of numbness to the inner arm or lymphedema. Additionally for full dissection was performed at possibility of injury to the thoracodorsal and long thoracic nerves. The patient understands and wishes to proceed. If frozen section does not reveal macroscopic disease but it is seen on permanent section there may be a possibility of recommendation for additional surgery and full axillary dissection. encounter 30 minutes, > 50 % of time in planning and counselling
== END | disposition home or self-care (01) ==
LOC: WWCWWP 11:17
PROVIDERS: ATTEND Surgery
DX: Z53.9 Procedure and treatment not carried out, unspecified reason (principal)

== ENCOUNTER 2019-11-13 09:18 | Day surgery (SDC) | payer BC ==
[2019-11-08 13:38] VITALS: BMI 30.7
[~2019-11-13 09:18] MED LIST changes: -LIDOCAINE 1% (10MG/ML) FOR IV START INTRADERMA PRN; +MIDAZOLAM 2 MG/2 ML VIAL IV PRN
[2019-11-13] MEDS ORDERED: SUCCINYLCHOLINE CHLORIDE 100 MG/5 ML SYR IV ONE (12:48)
[2019-11-13] MEDS ORDERED: LIDOCAINE 1% INJ 10MG/ML (20 ML MDV) ONE (12:48)
[2019-11-13] MEDS ORDERED: PHENYLEPHRINE-0.9% NACL SYG 1 MG/10 ML SYRINGE ONE (12:48)
[2019-11-13] MEDS ORDERED: ROCURONIUM BROMIDE 10 MG/ML 5 ML VIAL IV ONE (12:48)
[2019-11-13] MEDS ORDERED: MIDAZOLAM 2 MG/2 ML VIAL ONE (12:48)
[2019-11-13] MEDS ORDERED: fentaNYL (PF) 50 MCG/ML 2 ML AMP ONE (12:48)
[2019-11-13] MEDS ORDERED: PROPOFOL 10 MG/ML 20 ML VIAL IV ONE (12:48)
[2019-11-13] MEDS ORDERED: HYDROmorphone (PF) 1 MG/ML ONE (12:48)
[2019-11-13] MEDS ORDERED: METHYLENE BLUE 10 MG/ML (10 ML VIAL) INJ ONE (13:20)
[2019-11-13] MEDS ORDERED: LIDOCAINE 1% INJ 10MG/ML (20 ML MDV) SQ ONE ×2 (13:38→13:57)
--- NOTE | 2019-11-13 14:03 | P.OP ---
Date of Procedure: 11/13/19 Preoperative Diagnosis: Stage I a right breast cancer/status post lumpectomy Postoperative Diagnosis: Patient for sentinel node biopsy on the right Procedure(s) Performed: Right breast lymphatic mapping, sentinel node biopsy Anesthesia: MANE Surgeon: Sheree Mccoy Estimated Blood Loss (ml): 5 IV fluids (ml): 400 Pathology: other (Axillary lymph node) Condition: stable Disposition: same day Indications for Procedure: Prior lumpectomy breast stage IA cancer, patient now for sentinel node biopsy Operative Findings: Axillary lymph node Description of Procedure: Clementine is a 59-year-old white female status post right breast needle local excisional biopsy. This was done after a core bopsy had shown atypia, this resulted in the needle localization and excisional biopsy. This was revealed a well-differentiated ductal carcinoma grade 1. Margins were negative. She was recommended to undergo a sentinel node biopsy. She understood the risks and benefits and wished to proceed. The patient underwent injection of radioactive substance by a radiology in the periaerolar area, however in the room after induction of anesthesia using the neoprobe radioactivity was not well heard. Therefore 10 mL of half percent methylene blue was injected in the periareolar region. The breast was massaged for 3 minutes. The breast and axilla were prepped and draped in a sterile fashion. An incision was made in the axillary hairline. This was dissected down to the pectoralis major muscle. Careful dissection was performed into the deep axillary tissues. Using the neoprobe there was an area of increased radioactivity. No blue lymph node was identified. Following the increased radioactivity using the Harmonic scalpel the area of concern was excised. This was a very small lymph node with a 10 second count of 1577. The background count was 13. Some additional axillary tissue which with what appeared to be additional allie tissue was removed as well. The additional tissue was neither radioactive nor blue. No other adenopathy of concern was identified. The wound was well irrigated. The deep tissues were closed using 3-0 Vicryl suture. The skin was closed using a 4-0 Monocryl. The patient tolerated the procedure in stable condition.
--- NOTE | 2019-11-13 14:05 | P.DS ---
Providers Attending physician: Sheree Mccoy Primary care physician: Emelia Tamayo Plan - Discharge Summary Discharge Rx Participant: Yes New Discharge Prescriptions: No Action Cetirizine HCl [Zyrtec] 10 mg PO QAM Ascorbic Acid [Vitamin C] 1,000 mg PO QAM Ipratropium/Albuter 20-100Mcg [Combivent Respimat 20-100Mcg Inhaler] 1 puff PO DAILY PRN PRN Reason: Allergic Reaction Fluticasone/Salmeterol [Advair 500-50 Diskus] 1 inhalation PO DAILY ALPRAZolam [Xanax] 0.5 mg PO DAILY PRN PRN Reason: Anxiety Lisinopril-Hctz 20-25 mg [Zestoretic 20-25] 1 tab PO DAILY Anastrozole [Arimidex] 1 mg PO DAILY Cholecalciferol [Vitamin D3 (25 Mcg = 1000 Iu)] 3,000 unit PO DAILY Discharge Medication List Cetirizine HCl [Zyrtec] 10 mg PO QAM 11/06/18 [History] Ascorbic Acid [Vitamin C] 1,000 mg PO QAM 02/14/19 [History] ALPRAZolam [Xanax] 0.5 mg PO DAILY PRN 08/03/19 [History] Fluticasone/Salmeterol [Advair 500-50 Diskus] 1 inhalation PO DAILY 08/03/19 [History] Ipratropium/Albuter 20-100Mcg [Combivent Respimat 20-100Mcg Inhaler] 1 puff PO DAILY PRN 08/03/19 [History] Lisinopril-Hctz 20-25 mg [Zestoretic 20-25] 1 tab PO DAILY 08/13/19 [History] Anastrozole [Arimidex] 1 mg PO DAILY 10/19/19 [History] Cholecalciferol [Vitamin D3 (25 Mcg = 1000 Iu)] 3,000 unit PO DAILY 11/08/19 [History] Follow up Appointment(s)/Referral(s): Sheree Mccoy MD [STAFF PHYSICIAN] - 1 Week Patient Instructions/Handouts: *Surgery [facility] - Scopalamine Patch Instructions Activity/Diet/Wound Care/Special Instructions: do not drive for 24 hours after d/c may shower after 48 hours Discharge Disposition: HOME SELF-CARE
[2019-11-13 14:20] VITALS: TEMP 96.8
[2019-11-13] MEDS ORDERED: diphenhydrAMINE 50 MG/ML 1 ML VIAL ONE (15:41)
[2019-11-13] MEDS ORDERED: diphenhydrAMINE 50 MG/ML 1 ML VIAL IVP ONE ×2 (15:47→15:48)
[2019-11-13 15:50] VITALS: RESP 16
--- NOTE | 2019-11-13 15:55 | NM ---
EXAMINATION TYPE: NM sentinel node injection DATE OF EXAM: 11/13/2019 COMPARISON: NONE HISTORY: 59-year-old female personal history of previous right breast cancer, referred for sentinel n ode injection for surgery. TECHNIQUE AND FINDINGS: The procedure of sentinel lymph node injection was explained to the patient. The benefits, alternatives, and risks were discussed. An informed consent was then obtained. Overlying skin is cleaned with sterile alcohol. Following this, 515 uCi Tc 99m Tilmanocept was injected surrounding the outer aspect of the right nip ple intradermally. The patient tolerated the procedure well without any immediate complication. The patient was kept in the preoperative unit and then taken to surgery for surgical procedure what is presumed intraoperati ve gamma probe will be used for sentinel lymph node detection. IMPRESSION: Right breast radiotracer injection for sentinel node localization as above.
[2019-11-13 17:00] VITALS: BP 115/67; PULSE 61
== END 2019-11-13 17:59 | disposition home or self-care (01) ==
LOC: OR 09:18
PROVIDERS: ATTEND Surgery
DX: C50.911 Malignant neoplasm of unspecified site of right female breast (principal); Z90.710 Acquired absence of both cervix and uterus; Z98.890 Other specified postprocedural states; J45.909 Unspecified asthma, uncomplicated; E78.00 Pure hypercholesterolemia, unspecified; I10 Essential (primary) hypertension; Z87.891 Personal history of nicotine dependence; C44.91 Basal cell carcinoma of skin, unspecified; Z82.49 Family history of ischemic heart disease and other diseases of the circulatory system; E78.5 Hyperlipidemia, unspecified; K21.9 Gastro-esophageal reflux disease without esophagitis; Z80.3 Family history of malignant neoplasm of breast; Z80.1 Family history of malignant neoplasm of trachea, bronchus and lung; Z80.49 Family history of malignant neoplasm of other genital organs; Z80.0 Family history of malignant neoplasm of digestive organs; Z80.8 Family history of malignant neoplasm of other organs or systems; Z79.811 Long term (current) use of aromatase inhibitors; Z79.51 Long term (current) use of inhaled steroids; Z79.899 Other long term (current) drug therapy; Z91.011 Allergy to milk products; Z88.0 Allergy status to penicillin; Z91.048 Other nonmedicinal substance allergy status
CPT/HCPCS: 38792; 38525; A9520; J2250; J1200; J1644; J1100; J2405; J2001; Q9968; J3010; J1170 ×2; J2370; J0330; J2704; 88307; 88341; 88342

== ENCOUNTER → 2019-11-22 | Outpatient (CLI) | payer BC ==
[2019-11-22 15:35] VITALS: BP 119/75; PULSE 81; RESP 18; TEMP 98.3
--- NOTE | 2019-11-22 15:48 | P.PN ---
Progress Note - Text Progress Note Date: 11/22/19 This is a 59-year-old white female status post lumpectomy of the right breast for a stage IA breast cancer. She subsequently underwent a sentinel node biopsy on . [place] node was negative for metastatic disease. She was seen by medical oncology and is presently taking Arimidex. She is not felt to need chemotherapy at this time. Additionally she is following with radiation oncology. She developed in the area inferior to the incision approximately 1 cm in size of tissue necrosis. This is healing at the present time. Physical exam: Lungs: Clear Heart: Regular rate and rhythm Incision: Clean and dry area approximately 1 cm inferior with some necrosis in the center which is healing at this time Impression: 1. Stage I right breast cancer/sentinel node negative 2. Patient has not recommended to have chemotherapy but is on a limited axillary 3. Patient following with medical oncology 4. Follow. 4 months CC: Dr. Tamayo
== END | disposition home or self-care (01) ==
LOC: WWCWWP 15:27
PROVIDERS: ATTEND Surgery
DX: Z53.9 Procedure and treatment not carried out, unspecified reason (principal)

== ENCOUNTER → 2020-03-21 | Outpatient (CLI) | payer BC ==
[2020-03-21 15:22] VITALS: BP 112/70; PULSE 88; RESP 18; TEMP 98.1
--- NOTE | 2020-03-21 15:43 | P.PN ---
Subjective Progress Note Date: 03/21/20 Principal diagnosis: stage IA breast cancer Clementine is a 60 year old white female status post a right lumpectomy and sentinel node biopsy for stage I a breast cancer on . [place] node was negative. She was seen by medical oncology and is presently taking arimidex. It was felt there was no need for chemotherapy. She is following with radiation oncology, finished her radiation in December 2019. She has no complaints related to her breast at this time. She did have COVID in January, this presented as fatigue and sinus drainage. She lost her taste and smell but this has returned. Family History: mother: skin cancer, basal cell father: lung cancer, and basal cell skin cancer sister: melanoma, and basal cell cancer patient: basal cell cancer, three on back, shoulder, neck, lip, cervical cancer maternal aunt: breast cancer maternal cousin: dx. at 41, maternal grandmother: colon cancer maternal great aunt: breast cancer Hormonal History: menarche: 15 G0 hysterectomy one ovary left, for cervical cancer at 27 BCP: 4 years hormones: none Surgical history: 1. Hysterectomy 1 ovary left on for cervical cancer at the age of 27 2. Mohs chemosurgery and basal cell carcinoma 4 times 3. [place] teeth removed Medical history: Asthma High cholesterol Hypertension Social History: smoke: one pack per day for 20 years stopped at age 42 Alcohol: Negative Drugs: Negative - Constitutional Constitutional: Denies chills, Denies fever - EENT Eyes: denies blurred vision, denies pain Ears: deny: decreased hearing, tinnitus Ears, nose, mouth and throat: Denies headache, Denies sore throat - Breasts Breasts: bilateral: as per HPI - Cardiovascular Cardiovascular: Reports high blood pressure - Respiratory Comment: asthma former smoker - Gastrointestinal Gastrointestinal: Denies abdominal pain, Denies diarrhea, Denies nausea, Denies vomiting - Genitourinary (Female) Genitourinary: Denies dysuria, Denies hematuria - Menstruation Menstruation: Reports post hysterectomy - Musculoskeletal Comment: arthritis - Integumentary Comment: 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, 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 Integumentary: Denies pruritus, Denies rash - Neurological Neurological: Denies numbness, Denies weakness - Psychiatric Psychiatric: Reports anxiety, Denies depression - Endocrine Endocrine: Denies fatigue, Denies weight change - Hematologic/Lymphatic Comment: blood clotting runs in the family, her mother has had DVT, patient tested and unsure - Allergic/Immunologic Comment: multiple allergies Objective - Vital Signs Vital signs: Vital Signs Temp 98.1 F 03/21/20 15:18 Pulse 88 03/21/20 15:18 Resp 18 03/21/20 15:18 BP 112/70 03/21/20 15:18 Pulse Ox 97 03/21/20 15:18 Intake & Output 03/20/20 03/21/20 03/21/20 18:59 06:59 18:59 Weight 83.915 kg - Exam BMI 30.8 - Constitutional General appearance: Present: average body habitus - EENT Eyes: Present: EOMI ENT: Present: hearing grossly normal - Neck Neck: Present: normal ROM - Respiratory Respiratory: bilateral: CTA - Cardiovascular Rhythm: regular Heart sounds: normal: S1, S2 - Gastrointestinal General gastrointestinal: Present: soft - Integumentary Integumentary: Present: normal turgor - Musculoskeletal Musculoskeletal: Present: gait normal - Psychiatric Psychiatric: Present: A&O x's 3, appropriate affect, intact judgment & insight - Additional findings Additional findings: Breast exam: BRA: 42DD inspection: Well-healed scar right breast from prior lumpectomy Palpation: Right breast: Multi-positional exam fibrocystic changes, no dominant masses or nodules of concern Right axilla: No adenopathy of concern Left breast: Multi-positional exam no dominant masses or nodules of concern Left axilla: No adenopathy of concern Assessment and Plan Assessment: Impression: 1. Stage I a right breast cancer status post lumpectomy and sentinel node biopsy 2. Completion of radiation therapy 3. Patient is presently on Arimidex and tolerating without difficulty she did not have chemotherapy 4. Patient recommended to have a repeat left breast ultrasound on her September ultrasound this will be scheduled Plan: 1. Left breast mammogram and ultrasound in March with physician exam at that time 2. Continue Demadex 3. Follow-up here in 3 months time 4. Bilateral mammogram in September CC: Dr. Tamayo encounter 20 minutes, > 50% of time in planning and counselling Time with Patient: Less than 30
== END | disposition home or self-care (01) ==
LOC: WWCWWP 15:07
PROVIDERS: ATTEND Surgery
DX: Z53.9 Procedure and treatment not carried out, unspecified reason (principal)

== ENCOUNTER → 2020-04-22 | Outpatient (CLI) | payer BC ==
--- NOTE | 2020-04-22 15:04 | MM ---
Reason for exam: additional evaluation requested from prior study. Last mammogram was performed 6 months ago. History: Patient is postmenopausal, has history of breast cancer at age 59, has history of endometrial cancer at age 27, and is nulliparous. Family history of breast cancer in maternal cousin at age 30 and breast cancer in maternal aunt at age 60. Malignant MG pre op needle loc RT of the right breast, August 14, 2019. Took hormonal contraceptives for 3 years beginning at age 24. Physical Findings: Nurse did not find any significant physical abnormalities on exam. MG 3D Diag Mammo W/Cad LT CC and MLO view(s) were taken of the left breast. Prior study comparison: October 15, 2019, bilateral MG 3d diag mammo w/cad ALVIN. January 17, 2019, right breast MG 3d work up w/cad RT. The breast tissue is extremely dense which could obscure a lesion on mammography. Asymmetric breast tissue left axilla, stable. There is no discrete abnormality. These results were verbally communicated with the patient and result sheet given to the patient on 04/22/20. ASSESSMENT: Benign, BI-RAD 2 RECOMMENDATION: Routine screening mammogram of both breasts in 6 months. Back on schedule for September 2020.
--- NOTE | 2020-04-22 15:06 | USB ---
Reason for exam: follow-up at short interval from prior study. History: Patient is postmenopausal, has history of breast cancer at age 59, has history of endometrial cancer at age 27, and is nulliparous. Family history of breast cancer in maternal cousin at age 30 and breast cancer in maternal aunt at age 60. Malignant MG pre op needle loc RT of the right breast, August 14, 2019. Took hormonal contraceptives for 3 years beginning at age 24. US Breast Limited LT Left limited breast ultrasound including focal area of concern, retroareolar and axilla demonstrates a 6 x 2 x 6mm oval, lobular, cystic cluster at 11 o'clock, decreased in size from 10/15/19. These results were verbally communicated with the patient and result sheet given to the patient on 04/22/20. ASSESSMENT: Benign, BI-RAD 2 RECOMMENDATION: Routine screening mammogram of both breasts in 6 months. Back on schedule for September 2020.
== END | disposition home or self-care (01) ==
LOC: RADMAMWWP 13:39
PROVIDERS: ATTEND Surgery
DX: Z08 Encounter for follow-up examination after completed treatment for malignant neoplasm (principal); Z85.3 Personal history of malignant neoplasm of breast
CPT/HCPCS: 77061; 77065

== ENCOUNTER → 2020-04-25 | Outpatient (CLI) | payer BC ==
--- NOTE | 2020-04-25 16:20 | P.PN ---
Subjective Progress Note Date: 04/25/20 stage IA breast cancer Clementine is a 60-year-old white female who underwent a stereo core biopsy at [facility] 3-D on 122. This revealed focal atypical ductal hyperplasia. She subsequently underwent a needle local excisional lumpectomy on at [facility]. This revealed invasive well-differentiated ductal carcinoma and margins were all negative. She therefore underwent a sentinel node biopsy on 11/13/2019. [place] node was negative. She was seen by medical oncology and is presently taking arimidex. It was felt there was no need for chemotherapy. She is following with radiation oncology, finished her radiation in December 2019. She has no complaints related to her breast at this time. She did have COVID in January, this presented as fatigue and sinus drainage. She lost her taste and smell but this has returned. Her last bilateral mammogram was . Following this a left breast ultrasound in 6 months was recommended that was performed on . Additionally she had a left breast mammogram performed on the same day. This was felt to be benign BIRADS 2. The patient had been seen in the office in February 2020 and a breast examination performed at that time. On breast examination no lesions of concern had been identified. She is here today for results of the most recent left breast mammogram and ultrasound. Family History: mother: skin cancer, basal cell father: lung cancer, and basal cell skin cancer sister: melanoma, and basal cell cancer patient: basal cell cancer, three on back, shoulder, neck, lip, cervical cancer maternal aunt: breast cancer maternal cousin: dx. at 41, maternal grandmother: colon cancer maternal great aunt: breast cancer Hormonal History: menarche: 15 G0 hysterectomy one ovary left, for cervical cancer at 27 BCP: 4 years hormones: none Surgical history: 1. Hysterectomy 1 ovary left on for cervical cancer at the age of 27 2. Mohs chemosurgery and basal cell carcinoma 4 times 3. [place] teeth removed Medical history: Asthma High cholesterol Hypertension Social History: smoke: one pack per day for 20 years stopped at age 42 Alcohol: Negative Drugs: Negative - Constitutional Constitutional: Denies chills, Denies fever - EENT Eyes: denies blurred vision, denies pain Ears: deny: decreased hearing, tinnitus Ears, nose, mouth and throat: Denies headache, Denies sore throat - Breasts Breasts: bilateral: as per HPI - Cardiovascular Cardiovascular: Reports high blood pressure - Respiratory Comment: asthma former smoker - Gastrointestinal Gastrointestinal: Denies abdominal pain, Denies diarrhea, Denies nausea, Denies vomiting - Genitourinary (Female) Genitourinary: Denies dysuria, Denies hematuria - Menstruation Menstruation: Reports post hysterectomy - Musculoskeletal Comment: arthritis - Integumentary Comment: 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, 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 Possible clotting abnormalities 2. Fibrocystic breast changes 3. right breast status post lumpectomy and sentinel node biopsy/radiation therapy/anti-hormone therapy for stage IA invasive ductal carcinoma no evidence of recurrent disease 4. Recent left breast mammogram and ultrasound benign 5. Asthma 6. Hypertension 7. Anxiety 8. History of basal cell carcinoma Plan: 1. Patient to follow up in 4 months time for physical examination 2. Bilateral mammogram and ultrasound of the left breast in September 2020. Objective - Vital Signs Vital signs: Vital Signs Temp 98.0 F 04/25/20 16:06 Pulse 72 04/25/20 16:06 Resp 18 04/25/20 16:06 BP 126/76 04/25/20 16:06 Pulse Ox 98 04/25/20 16:06 Intake & Output 04/24/20 04/25/20 04/25/20 18:59 06:59 18:59 Weight 83.007 kg
== END | disposition home or self-care (01) ==

== ENCOUNTER → 2020-07-21 | Outpatient (CLI) | payer BC ==
--- NOTE | 2020-07-22 09:00 | BD ---
EXAMINATION TYPE: Axial Bone Density DATE OF EXAM: 07/21/2020 COMPARISON: NONE CLINICAL HISTORY: 60 YR OLD FEMALE......Z79.890 POST MENOPAUSAL Height: 63.5 Weight: 189 FRAX RISK QUESTIONS: Glucocorticoids (More than 3mos): YES (Ex: prednisone, prednisolone, methylprednisolone, dexamethasone, and hydrocortisone). RISK FACTORS HISTORY OF: Diet low in dairy products/other sources of calcium: YES, ALLERGIC TO MILK Postmenopausal woman: YES, AT AGE 50 Hyperparathyroidism: NO Adrenal Insufficiency: NO MEDICATIONS: Prednisone or other steroids: YES, FOR ASTHMA, ADVAIR, FLONASE, ...FOR YRS Additional Medications: BP MEDS, XANAX NEEDED, HX OF RADIATION FOR CANCER, REFLUX MEDS, VIT D,, S TOPPED ESTROGEN BRITTNEY Additional History: HX OF BREAST, UTERINE, COLON CANCERS, ASTHMA, HYPERTENSION EXAM MEASUREMENTS: Bone mineral densitometry was performed using the [employer] System. Bone mineral density as measured about the Lumbar spine is: ----- L1-L4(G/cm2): 1.383 T Score Values are as follows: ----- L1: 1.0 ----- L2: 0.6 ----- L3: 2.1 ----- L4: 2.3 ----- L1-L4: 1.7 Bone mineral density FIRST BONE DENSITY......BASELINE STUDY Bone mineral density about the R hip (g/cm2): 1.115 Bone mineral density about the L hip (g/cm2): 1.135 T Score values are as follows: -----R Neck: -0.1 -----L Neck: 0.0 -----R Total: 0.9 -----L Total: 1.0 Bone mineral density BASELINE STUDY FRAX%s: THERE IS A 8.8% CHANCE FOR A MAJOR OSTEOPOROTIC FX AND A 0.2% FOR HIPS.......PROBABILITY F OR FX IN10 YRS TIME IMPRESSION: Normal (Values between +1 and -1 indicate normal bone mass). Consider repeating this study in 5 year s or sooner if there is some new clinical indication. NOTE: T-SCORE=SD OF THE YOUNG ADULT MEAN.
== END | disposition home or self-care (01) ==
LOC: RADBDWWP 08:32
PROVIDERS: ATTEND Internal Medicine Hematology & Oncology
DX: Z13.820 Encounter for screening for osteoporosis (principal); Z78.0 Asymptomatic menopausal state
CPT/HCPCS: 77080

== ENCOUNTER → 2020-10-16 | Outpatient (CLI) | payer BC ==
--- NOTE | 2020-10-16 12:01 | MM ---
Reason for exam: additional evaluation requested from prior study. Last mammogram was performed 6 months ago. History: Patient is postmenopausal, has history of breast cancer at age 59, has history of other cancer at age 27, and is nulliparous. Family history of breast cancer in maternal cousin at age 30 and breast cancer in maternal aunt at age 60. Malignant MG pre op needle loc RT of the right breast, August 14, 2019. Lumpectomy of the right breast, July 2019. Radiation therapy of the right breast, 2019. Took hormonal contraceptives for 3 years beginning at age 24. Took antineoplastic for 1 year. Physical Findings: Nurse did not find any significant physical abnormalities on exam. MG 3D Diag Mammo W/Cad ALVIN Bilateral CC and MLO view(s) were taken. Prior study comparison: April 22, 2020, left breast MG 3d diag mammo w/cad LT. October 15, 2019, bilateral MG 3d diag mammo w/cad ALVIN. November 20, 2018, bilateral MG 3d screening mammo w/cad. The breast tissue is heterogeneously dense. This may lower the sensitivity of mammography. Post surgical and post therapy change right breast. Stable microcalcifications medial right breast. No significant new findings when compared with previous films. These results were verbally communicated with the patient and result sheet given to the patient on 10/16/20. ASSESSMENT: Probably benign, BI-RAD 3 RECOMMENDATION: Follow-up diagnostic mammogram of the right breast in 6 months. (to assess for any evolving post therapy change)
== END | disposition home or self-care (01) ==
LOC: RADMAMWWP 10:43
PROVIDERS: ATTEND Surgery
DX: R92.2 Inconclusive mammogram (principal); R92.0 Mammographic microcalcification found on diagnostic imaging of breast; Z78.0 Asymptomatic menopausal state; Z85.3 Personal history of malignant neoplasm of breast; Z80.3 Family history of malignant neoplasm of breast
CPT/HCPCS: 77062; 77066

== ENCOUNTER → 2020-10-23 | Outpatient (CLI) | payer BC ==
[2020-10-23 15:38] VITALS: BP 133/83; PULSE 88; RESP 16; TEMP 98.2
--- NOTE | 2020-10-23 15:53 | P.PN ---
Subjective Progress Note Date: 10/23/20 Principal diagnosis: stage 1A right breast cancer 08-14-19 Clementine is a 60-year-old white female who underwent a stereo core biopsy at [facility] 3-D on 1219. This revealed focal atypical ductal hyperplasia. She subsequently underwent a needle local excisional lumpectomy on at [facility]. This revealed invasive well-differentiated ductal carcinoma and margins were all negative. She therefore underwent a sentinel node biopsy on 11/13/2019. [place] node was negative. She was seen by medical oncology and was taking arimidex which the patient stopped secondary to fatigue and decreased muscle strength. It was felt there was no need for ch emotherapy. She is following with radiation oncology, she finished her radiation in December 2019. She has no complaints related to her breast at this time. She did have COVID in January 2020, this presented as fatigue and sinus drainage. She lost her taste and smell but this has returned. She has opted not to take the vaccine. Her last bilateral mammogram was 10-16-20. This was probably benign BIRADS 3. She was recommended to undergo a repeat right breast mammogram in 6 months time. She is not complaining of any new lumps masses or nodules of concern in either breast. Family History: mother: skin cancer, basal cell father: lung cancer, and basal cell skin cancer sister: melanoma, and basal cell cancer patient: basal cell cancer, three on back, shoulder, neck, lip, cervical cancer maternal aunt: breast cancer maternal cousin: dx. at 41, maternal grandmother: colon cancer maternal great aunt: breast cancer Hormonal History: menarche: 15 G0 hysterectomy one ovary left, for cervical cancer at 27 BCP: 4 years hormones: none Surgical history: 1. Hysterectomy 1 ovary left on for cervical cancer at the age of 27 2. Mohs chemosurgery and basal cell carcinoma 4 times 3. [place] teeth removed Medical history: Asthma High cholesterol Hypertension Social History: smoke: one pack per day for 20 years stopped at age 42 Alcohol: Negative Drugs: Negative - Constitutional Constitutional: Denies chills, Denies fever - EENT Eyes: denies blurred vision, denies pain Ears: deny: decreased hearing, tinnitus Ears, nose, mouth and throat: Denies headache, Denies sore throat - Breasts Breasts: bilateral: as per HPI - Cardiovascular Cardiovascular: Reports high blood pressure - Respiratory Comment: asthma former smoker - Gastrointestinal Gastrointestinal: Denies abdominal pain, Denies diarrhea, Denies nausea, Denies vomiting - Genitourinary (Female) Genitourinary: Denies dysuria, Denies hematuria - Menstruation Menstruation: Reports post hysterectomy - Musculoskeletal Comment: arthritis - Integumentary Comment: 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, 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 Integumentary: Denies pruritus, Denies rash - Neurological Neurological: Denies numbness, Denies weakness - Psychiatric Psychiatric: Reports anxiety, Denies depression - Endocrine Endocrine: Denies fatigue, Denies weight change - Hematologic/Lymphatic Comment: blood clotting runs in the family, her mother has had DVT, patient tested and unsure - Allergic/Immunologic Comment: multiple allergies Objective - Vital Signs Vital signs: Vital Signs Temp 98.2 F 10/23/20 15:35 Pulse 88 10/23/20 15:35 Resp 16 10/23/20 15:35 BP 133/83 10/23/20 15:35 Pulse Ox 96 10/23/20 15:35 Intake & Output 10/22/20 10/23/20 10/23/20 18:59 06:59 18:59 Weight 83.915 kg - Exam BMI 30.8 - Constitutional General appearance: Present: cooperative - EENT Eyes: Present: EOMI ENT: Present: hearing grossly normal - Neck Neck: Present: normal ROM - Respiratory Respiratory: bilateral: CTA - Cardiovascular Rhythm: regular Heart sounds: normal: S1, S2 - Integumentary Integumentary: Present: normal turgor - Musculoskeletal Musculoskeletal: Present: gait normal - Psychiatric Psychiatric: Present: intact judgment & insight - Additional findings Additional findings: Breast Exam: BRA: 44DD inspection: Bilateral grade 3 ptosis Palpation: Right breast: Multi-positional exam fibrocystic changes, well-healed scar, no dominant masses or nodules of concern Right axilla: No adenopathy of concern Left breast: Multi-positional exam fibrocystic changes no dominant masses or nodules of concern Left axilla: No adenopathy of concern Assessment and Plan Assessment: Impression: Asthma High cholesterol Hypertension stage 1A right breast cancer no recurrence Plan: 1. right breast mammogram in 6 months 2. follow up here after mammogram CC: Dr. Tamayo
== END ==
LOC: WWCWWP 15:27
PROVIDERS: ATTEND Surgery
DX: C50.911 Malignant neoplasm of unspecified site of right female breast (principal); J45.909 Unspecified asthma, uncomplicated; E78.00 Pure hypercholesterolemia, unspecified; I10 Essential (primary) hypertension; Z87.891 Personal history of nicotine dependence; Z91.09 Other allergy status, other than to drugs and biological substances; Z88.0 Allergy status to penicillin; Z91.041 Radiographic dye allergy status

== ENCOUNTER → 2021-04-21 | Outpatient (CLI) | payer BC ==
--- NOTE | 2021-04-21 11:33 | P.NAPBC ---
NAPBC Queries - NAPBC Queries Was patient's case review presented at [facility] tumor board? If no, comment.: Yes Was patient's pathology reviewed at [facility]? If no, comment.: Yes Was breast conservation surgery offered? If no, comment.: Yes Was sentinel node biopsy offered? If no, comment.: Yes Was diagnosis confirmed by percutaneous core biopsy? If no, comment.: Yes Is patient mastectomy patient?: No Was a preop referral to reconstructive surgeon offered?: No Clinical Stage: stage IA
--- NOTE | 2021-04-22 09:31 | MM ---
Reason for exam: additional evaluation requested from prior study. Last mammogram was performed 6 months ago. History: Patient is postmenopausal, has history of breast cancer at age 59, has history of other cancer at age 27, and is nulliparous. Family history of breast cancer in maternal cousin at age 30 and breast cancer in maternal aunt at age 60. Malignant MG pre op needle loc RT of the right breast, August 14, 2019. Lumpectomy of the right breast, July 2019. Radiation therapy of the right breast, 2019. Took hormonal contraceptives for 3 years beginning at age 24. Took antineoplastic for 8 months beginning at age 59. Physical Findings: Nurse did not find any significant physical abnormalities on exam. MG 3D Diag Mammo W/Cad RT CC and MLO view(s) were taken of the right breast. Prior study comparison: October 16, 2020, bilateral MG 3d diag mammo w/cad ALVIN. April 22, 2020, left breast MG 3d diag mammo w/cad LT. The breast tissue is heterogeneously dense. This may lower the sensitivity of mammography. There is chronic nodularity in the right breast medially seen on 3D. Post surgical and post therapy change right breast. Stable grouped calcifications 11 o'clock posteriorly and 3 o'clock middle depth. Continued follow up recommended. These results were verbally communicated with the patient and result sheet given to the patient on 04/21/21. ASSESSMENT: Probably benign, BI-RAD 3 RECOMMENDATION: Follow-up diagnostic mammogram of both breasts in 6 months.
== END | disposition home or self-care (01) ==
LOC: RADMAMWWP 13:34
PROVIDERS: ATTEND Surgery
DX: R92.1 Mammographic calcification found on diagnostic imaging of breast (principal); Z85.3 Personal history of malignant neoplasm of breast; Z80.3 Family history of malignant neoplasm of breast; Z78.0 Asymptomatic menopausal state
CPT/HCPCS: 77061; 77065

== ENCOUNTER → 2021-05-01 | Outpatient (CLI) | payer BC ==
[2021-05-01 09:41] VITALS: BP 152/80; PULSE 87; RESP 17; TEMP 98.1
--- NOTE | 2021-05-01 10:28 | P.PN ---
Subjective Progress Note Date: 05/01/21 Principal diagnosis: stage IA right breast cancer 10-23-20 stage 1A right breast cancer 08-14-19 Clementine is a 61-year-old white female who underwent a stereo core biopsy at [facility] 3-D on 1219. This revealed focal atypical ductal hyperplasia. She subsequently underwent a needle local excisional lumpectomy on at [facility]. This revealed invasive well-differentiated ductal carcinoma and margins were all negative. She therefore underwent a s entinel node biopsy on 11/13/2019. [place] node was negative. She was seen by medical oncology and was taking arimidex which the patient stopped secondary to fatigue and decreased muscle strength. It was felt there was no need for chemotherapy. She is following with radiation oncology, she finished her radiation in December 2019. She has no complaints related to her breast at this time. She did have COVID in January 2020, this presented as fatigue and sinus drainage. She lost her taste and smell but this has returned. She has opted not to take the vaccine. Her last bilateral mammogram was 10-16-20. This was probably benign BIRADS 3. She was recommended to undergo a repeat right breast mammogram in 6 months time. She is not complaining of any new lumps masses or nodules of concern in either breast. 05-01-21 Clementine had a repeat right breast mammogram on 04-21-21 this was probably benign BIRAD 3 and repeat mammogram bilateral in 6 months recommended Family History: mother: skin cancer, basal cell father: lung cancer, and basal cell skin cancer sister: melanoma, and basal cell cancer patient: basal cell cancer, three on back, shoulder, neck, lip, cervical cancer maternal aunt: breast cancer maternal cousin: dx. at 41, maternal grandmother: colon cancer maternal great aunt: breast cancer Hormonal History: menarche: 15 G0 hysterectomy one ovary left, for cervical cancer at 27 BCP: 4 years hormones: none Surgical history: 1. Hysterectomy 1 ovary left on for cervical cancer at the age of 27 2. Mohs chemosurgery and basal cell carcinoma 4 times 3. [place] teeth removed Medical history: Asthma High cholesterol Hypertension Social History: smoke: one pack per day for 20 years stopped at age 42 Alcohol: Negative Drugs: Negative - Constitutional Constitutional: Denies chills, Denies fever - EENT Eyes: denies blurred vision, denies pain Ears: deny: decreased hearing, tinnitus Ears, nose, mouth and throat: Denies headache, Denies sore throat - Breasts Breasts: bilateral: as per HPI - Cardiovascular Cardiovascular: Reports high blood pressure - Respiratory Comment: asthma former smoker - Gastrointestinal Gastrointestinal: Denies abdominal pain, Denies diarrhea, Denies nausea, Denies vomiting - Genitourinary (Female) Genitourinary: Denies dysuria, Denies hematuria - Menstruation Menstruation: Reports post hysterectomy - Musculoskeletal Comment: arthritis - Integumentary Comment: 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, 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 Integumentary: Denies pruritus, Denies rash - Neurological Neurological: Denies numbness, Denies weakness - Psychiatric Psychiatric: Reports anxiety, Denies depression - Endocrine Endocrine: Denies fatigue, Denies weight change - Hematologic/Lymphatic Comment: blood clotting runs in the family, her mother has had DVT, patient tested and unsure - Allergic/Immunologic Comment: multiple allergies Objective - Vital Signs Vital signs: Vital Signs Temp 98.1 F 05/01/21 09:38 Pulse 87 05/01/21 09:38 Resp 17 05/01/21 09:38 BP 152/80 05/01/21 09:38 Pulse Ox 99 05/01/21 09:38 Intake & Output 04/30/21 05/01/21 05/01/21 18:59 06:59 18:59 Weight 86.183 kg - Exam BMI 31.6 - Constitutional General appearance: Present: cooperative - EENT Eyes: Present: EOMI ENT: Present: hearing grossly normal - Neck Neck: Present: normal ROM - Respiratory Respiratory: bilateral: CTA - Cardiovascular Rhythm: regular Heart sounds: normal: S1, S2 - Gastrointestinal General gastrointestinal: Present: soft - Integumentary Integumentary: Present: normal turgor - Musculoskeletal Musculoskeletal: Present: gait normal - Psychiatric Psychiatric: Present: A&O x's 3, appropriate affect, intact judgment & insight - Additional findings Additional findings: Breast Exam: BRA: 44DD inspection: bilateral grade 2/3 ptosis; well-healed scar right breast from prior lumpectomy Palpation: Right breast: Multi-positional exam fibrocystic changes no dominant masses or nodules of concern Right axilla: No adenopathy of concern Left breast: Multiple positional exam no dominant masses or nodules of concern Left axilla: No adenopathy of concern Assessment and Plan Assessment: Impression: 1. Patient status post right breast lumpectomy and sentinel node biopsy on for stage IA invasive ductal carcinoma no evidence of recurrence 2. patient is not taking any anti hormone therapy at this time 3. Recent right breast mammogram performed on but not probable benign BIRADS 3 4. Nothing which would warrant interventional biopsy at this time no evidence of any recurrent cancer Plan: Repeat bilateral mammogram in 6 months with physician exam at that time CC: Dr. Tamayo
== END ==
LOC: WWCWWP 09:30
PROVIDERS: ATTEND Surgery
DX: R92.8 Other abnormal and inconclusive findings on diagnostic imaging of breast (principal); J45.909 Unspecified asthma, uncomplicated; I10 Essential (primary) hypertension; Z87.891 Personal history of nicotine dependence; Z98.890 Other specified postprocedural states; Z85.3 Personal history of malignant neoplasm of breast; Z79.51 Long term (current) use of inhaled steroids

== ENCOUNTER → 2021-11-03 | Outpatient (CLI) | payer BC ==
--- NOTE | 2021-11-03 09:07 | MM ---
Reason for Exam: Follow-up at short interval from prior study. Last mammogram was performed 1 year(s) and 1 month(s) ago. Patient History: Menarche at age 16. Patient has no children. Left ovary removed at age 27. Hysterectomy at age 27. Postmenopausal. Other cancer, age 27. Breast cancer, age 59. Hormonal Contraceptives for 3 years from age 24 until age 27. 07/2019, Lumpectomy on the Right side. 08/14/2019, Malignant Core Biopsy on the right side. 2019, Radiation Therapy on the right side. Maternal cousin had breast cancer, age 30. Maternal aunt had breast cancer, age 60. Tissue Density: The breast tissue is extremely dense which could obscure a lesion on mammography. Findings: Analyzed By CAD. Stable distortion in the right breast anterior to middle depth upper aspect with clips. Scattered benign-appearing small round calcifications redemonstrated bilaterally. Benign-appearing vascular calcification in the right breast is slightly more prominent. No suspicious mass or suspicious group of microcalcifications in either breast. Overall Assessment: Benign, BI-RAD 2 Management: Diagnostic Mammogram of both breasts in 1 year. A clinical breast exam by your physician is recommended on an annual basis and results should be correlated with mammographic findings. This exam should not preclude additional follow-up of suspicious palpable abnormalities. Results were given to the patient verbally at the time of exam. Electronically signed and approved by: Scooter Davison M.D.
== END | disposition home or self-care (01) ==
LOC: RADMAMWWP 08:43
PROVIDERS: ATTEND Surgery
DX: Z78.0 Asymptomatic menopausal state (principal); Z85.3 Personal history of malignant neoplasm of breast; Z80.3 Family history of malignant neoplasm of breast; Z98.890 Other specified postprocedural states
CPT/HCPCS: 77062; 77066

== ENCOUNTER → 2021-11-12 | Outpatient (CLI) | payer BC ==
[2021-11-12 10:55] VITALS: BP 116/66; PULSE 59; RESP 17; TEMP 98.7
--- NOTE | 2021-11-12 11:11 | P.PN ---
Subjective Progress Note Date: 11/12/21 Principal diagnosis: right breast stage IA invasive ductal cancer 08-14-2019 stage 1A right breast cancer 08-14-19 Clementine is a 61-year-old white female who underwent a stereo core biopsy at [facility] 3-D on 1219. This revealed focal atypical ductal hyperplasia. She subsequently underwent a needle local excisional lumpectomy on at [facility]. This revealed invasive well-differentiated ductal carcinoma and margins were all negative. She therefore underwent a sentinel node biopsy on 11/13/2019. [place] node was negative. She was seen by medical oncology and was taking arimidex which the patient stopped secondary to fatigue and decreased muscle strength. It was felt there was no need for chemotherapy. She is following with radiation oncology, she finished her radiation in December 2019. She did have COVID in January 2020, this presented as fatigue and sinus drainage. She lost her taste and smell but this has returned. She has opted not to take the vaccine. Her last bilateral mammogram was 11-03-21. This was benign BIRADS 2. She is not complaining of any new lumps masses or nodules of concern in either breast. Family History: mother: skin cancer, basal cell father: lung cancer, and basal cell skin cancer sister: melanoma, and basal cell cancer patient: basal cell cancer, three on back, shoulder, neck, lip, cervical cancer maternal aunt: breast cancer maternal cousin: dx. at 41, maternal grandmother: colon cancer maternal great aunt: breast cancer Hormonal History: menarche: 15 G0 hysterectomy one ovary left, for cervical cancer at 27 BCP: 4 years hormones: none Surgical history: 1. Hysterectomy 1 ovary left on for cervical cancer at the age of 27 2. Mohs chemosurgery and basal cell carcinoma 4 times 3. [place] teeth removed Medical history: Asthma High cholesterol Hypertension Social History: smoke: one pack per day for 20 years stopped at age 42 Alcohol: Negative Drugs: Negative - Constitutional Constitutional: Denies chills, Denies fever - EENT Eyes: denies blurred vision, denies pain Ears: deny: decreased hearing, tinnitus Ears, nose, mouth and throat: Denies headache, Denies sore throat - Breasts Breasts: bilateral: as per HPI - Cardiovascular Cardiovascular: Reports high blood pressure - Respiratory Comment: asthma former smoker - Gastrointestinal Gastrointestinal: Denies abdominal pain, Denies diarrhea, Denies nausea, Denies vomiting - Genitourinary (Female) Genitourinary: Denies dysuria, Denies hematuria - Menstruation Menstruation: Reports post hysterectomy - Musculoskeletal Comment: arthritis - Integumentary Comment: 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, 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 Integumentary: Denies pruritus, Denies rash - Neurological Neurological: Denies numbness, Denies weakness - Psychiatric Psychiatric: Reports anxiety, Denies depression - Endocrine Endocrine: Denies fatigue, Denies weight change - Hematologic/Lymphatic Comment: blood clotting runs in the family, her mother has had DVT, patient tested and unsure - Allergic/Immunologic Comment: multiple allergies Objective - Vital Signs Vital signs: Vital Signs Temp 98.7 F 11/12/21 10:52 Pulse 59 L 11/12/21 10:52 Resp 17 11/12/21 10:52 BP 116/66 11/12/21 10:52 Pulse Ox 98 11/12/21 10:52 FiO2 Intake & Output 11/11/21 11/12/21 11/12/21 18:59 06:59 18:59 Weight 84.368 kg - Exam BMI: 31 - Constitutional General appearance: Present: cooperative - EENT Eyes: Present: EOMI ENT: Present: hearing grossly normal - Neck Neck: Present: normal ROM - Respiratory Respiratory: bilateral: CTA - Cardiovascular Rhythm: regular Heart sounds: normal: S1, S2 - Gastrointestinal General gastrointestinal: Present: soft - Integumentary Integumentary: Present: normal turgor - Musculoskeletal Musculoskeletal: Present: gait normal - Psychiatric Psychiatric: Present: A&O x's 3, appropriate affect, intact judgment & insight - Additional findings Additional findings: Breast Exam: BRA: 44DD Inspection: bilateral grade 2/3 ptosis Palpation: Right breast: Well-healed scar from prior surgery, multiple positional exam no dominant masses or nodules of concern Right axilla: No adenopathy of concern Left breast: Multi-positional exam no dominant masses or nodules of concern Left axilla: No adenopathy of concern Assessment and Plan Assessment: Impression: Right breast stage IA invasive ductal carcinoma no evidence of recurrence Recent bilateral mammogram 9622 benign BIRADS 2 Patient has opted not to take an anti-hormone medication secondary to the symptoms Patient completed radiation therapy December 2019 Plan: Bilateral mammogram in 1 year Patient to follow up for breast examination in 6 months Patient a call sooner any questions or concerns CC: Dr. Tamayo
== END ==
LOC: WWCWWP 10:26
PROVIDERS: ATTEND Surgery
DX: Z08 Encounter for follow-up examination after completed treatment for malignant neoplasm (principal); Z85.3 Personal history of malignant neoplasm of breast; J45.909 Unspecified asthma, uncomplicated; E78.00 Pure hypercholesterolemia, unspecified; I10 Essential (primary) hypertension; Z87.891 Personal history of nicotine dependence; Z80.3 Family history of malignant neoplasm of breast; Z88.0 Allergy status to penicillin; Z91.09 Other allergy status, other than to drugs and biological substances; Z91.011 Allergy to milk products; Z88.9 Allergy status to unspecified drugs, medicaments and biological substances

== ENCOUNTER → 2022-05-13 | Outpatient (CLI) | payer BC ==
[2022-05-13 14:42] VITALS: BP 117/76; PULSE 81; RESP 17; TEMP 98.4
--- NOTE | 2022-05-13 14:46 | P.PN ---
Subjective Progress Note Date: 05/13/22 Principal diagnosis: right breast stage IA invasive ductal cancer 2019 right breast stage IA invasive ductal cancer 08-14-2019 Clementine is a 62-year-old white female who underwent a stereo core biopsy at [facility] 3-D on 1219. This revealed focal atypical ductal h yperplasia. She subsequently underwent a needle local excisional lumpectomy on at [facility]. This revealed invasive well-differentiated ductal carcinoma and margins were all negative. She therefore underwent a sentinel node biopsy on 11/13/2019. [place] node was negative. She was seen by medical oncology and was taking arimidex which the patient stopped secondary to fatigue and decreased muscle strength. It was felt there was no need for chemotherapy. She finished her radiation in December 2019. She did have COVID in January 2020, this presented as fatigue and sinus drainage. She lost her taste and smell but this has returned. She has opted not to take the vaccine. Her last bilateral mammogram was 11-03-21. This was benign BIRADS 2. She is not complaining of any new lumps masses or nodules of concern in either breast. Family History: mother: skin cancer, basal cell father: lung cancer, and basal cell skin cancer sister: melanoma, and basal cell cancer patient: basal cell cancer, three on back, shoulder, neck, lip, cervical cancer maternal aunt: breast cancer maternal cousin: dx. at 41, maternal grandmother: colon cancer maternal great aunt: breast cancer Hormonal History: menarche: 15 G0 hysterectomy one ovary left, for cervical cancer at 27 BCP: 4 years hormones: none Surgical history: 1. Hysterectomy 1 ovary left on for cervical cancer at the age of 27 2. Mohs chemosurgery and basal cell carcinoma 4 times 3. [place] teeth removed 4. 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 Medical history: Asthma High cholesterol Hypertension Social History: smoke: one pack per day for 20 years stopped at age 42 Alcohol: Negative Drugs: Negative - Constitutional Constitutional: Denies chills, Denies fever - EENT Eyes: denies blurred vision, denies pain Ears: deny: decreased hearing, tinnitus Ears, nose, mouth and throat: Denies headache, Denies sore throat - Breasts Breasts: bilateral: as per HPI - Cardiovascular Cardiovascular: Reports high blood pressure - Respiratory Comment: asthma former smoker - Gastrointestinal Gastrointestinal: Denies abdominal pain, Denies diarrhea, Denies nausea, Denies vomiting - Genitourinary (Female) Genitourinary: Denies dysuria, Denies hematuria - Menstruation Menstruation: Reports post hysterectomy - Musculoskeletal Comment: arthritis - Integumentary Comment: 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, 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 Integumentary: Denies pruritus, Denies rash - Neurological Neurological: Denies numbness, Denies weakness - Psychiatric Psychiatric: Reports anxiety, Denies depression - Endocrine Endocrine: Denies fatigue, Denies weight change - Hematologic/Lymphatic Comment: blood clotting runs in the family, her mother has had DVT, patient tested and unsure - Allergic/Immunologic Comment: multiple allergies Objective - Vital Signs Vital signs: Intake & Output 05/12/22 05/13/22 05/13/22 18:59 06:59 18:59 Weight 83.915 kg - Exam BMI: 30.8 - Constitutional General appearance: Present: cooperative - EENT Eyes: Present: EOMI ENT: Present: hearing grossly normal - Neck Neck: Present: normal ROM - Respiratory Respiratory: bilateral: CTA - Cardiovascular Rhythm: regular Heart sounds: normal: S1, S2 - Gastrointestinal General gastrointestinal: Present: soft - Integumentary Integumentary: Present: normal turgor - Musculoskeletal Musculoskeletal: Present: gait normal - Psychiatric Psychiatric: Present: A&O x's 3, appropriate affect, intact judgment & insight - Additional findings Additional findings: reast Exam: BRA: 44DD Inspection: bilateral grade 2/3 ptosis Palpation: Right breast: Well-healed scar from prior surgery, multi-positional exam no dominant masses or nodules of concern Right axilla: No adenopathy of concern Left breast: Multi-positional exam no dominant masses or nodules of concern Left axilla: No adenopathy of concern Assessment and Plan Assessment: Impression: Right breast stage IA invasive ductal carcinoma no evidence of recurrence Recent bilateral mammogram 9622 benign BIRADS 2 Patient has opted not to take an anti-hormone medication secondary to the symptoms Patient completed radiation therapy December 2019 Plan: Bilateral mammogram October 2022 Patient to follow up for breast examination in 6 months after mammogram Patient a call sooner any questions or concerns CC: Dr. Tamayo
== END ==
LOC: WWCWWP 14:31
PROVIDERS: ATTEND Surgery
DX: Z12.31 Encounter for screening mammogram for malignant neoplasm of breast (principal); Z85.3 Personal history of malignant neoplasm of breast; J45.909 Unspecified asthma, uncomplicated; E78.00 Pure hypercholesterolemia, unspecified; I10 Essential (primary) hypertension; Z91.048 Other nonmedicinal substance allergy status; Z91.011 Allergy to milk products; Z91.09 Other allergy status, other than to drugs and biological substances; Z87.891 Personal history of nicotine dependence

== ENCOUNTER → 2022-11-11 | Outpatient (CLI) | payer BC ==
--- NOTE | 2022-11-11 13:57 | P.PN ---
Subjective Progress Note Date: 11/11/22 Principal diagnosis: right breast stage I invasive ductal cancer 2019 right breast stage IA invasive ductal cancer 08-14-2019 Clementine is a 62-year-old white female who underwent a stereo core biopsy at [facility] 3-D on 1219. This revealed focal atypical ductal hy perplasia. She subsequently underwent a needle local excisional lumpectomy on at [facility]. This revealed invasive well-differentiated ductal carcinoma and margins were all negative. She therefore underwent a sentinel node biopsy on 11/13/2019. [place] node was negative. She was seen by medical oncology and was taking arimidex which the patient stopped secondary to fatigue and decreased muscle strength. It was felt there was no need for chemotherapy. She finished her radiation in December 2019. She did have COVID in January 2020, this presented as fatigue and sinus d rainage. She lost her taste and smell but this has returned. She has opted not to take the vaccine. She had a bilateral mammogram on 11-03-21. This was benign BIRADS 2. She is not complaining of any new lumps masses or nodules of concern in either breast. 11-11-22 The patient had a bilateral mammogram performed on . bilateral mammogram reviewed with Dr. Odell. Recommend a repeat left breast mammogram in 6 months. The right breast mammogram is stable as per review with Dr. Grissom. Patient does not complain of any new lumps masses or notches of concern in either breast. Family History: mother: skin cancer, basal cell father: lung cancer, and basal cell skin cancer sister: melanoma, and basal cell cancer patient: basal cell cancer, three on back, shoulder, neck, lip, cervical cancer maternal aunt: breast cancer maternal cousin: dx. at 41, maternal grandmother: colon cancer maternal great aunt: breast cancer Hormonal History: menarche: 15 G0 hysterectomy one ovary left, for cervical cancer at 27 BCP: 4 years hormones: none Surgical history: 1. Hysterectomy 1 ovary left on for cervical cancer at the age of 27 2. Mohs chemosurgery and basal cell carcinoma 4 times 3. [place] teeth removed 4. 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 Medical history: Asthma High cholesterol Hypertension Social History: smoke: one pack per day for 20 years stopped at age 42 Alcohol: Negative Drugs: Negative - Constitutional Constitutional: Denies chills, Denies fever - EENT Eyes: denies blurred vision, denies pain Ears: deny: decreased hearing, tinnitus Ears, nose, mouth and throat: Denies headache, Denies sore throat - Breasts Breasts: bilateral: as per HPI - Cardiovascular Cardiovascular: Reports high blood pressure - Respiratory Comment: asthma former smoker - Gastrointestinal Gastrointestinal: Denies abdominal pain, Denies diarrhea, Denies nausea, Denies vomiting - Genitourinary (Female) Genitourinary: Denies dysuria, Denies hematuria - Menstruation Menstruation: Reports post hysterectomy - Musculoskeletal Comment: arthritis - Integumentary Comment: 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, 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 Integumentary: Denies pruritus, Denies rash - Neurological Neurological: Denies numbness, Denies weakness - Psychiatric Psychiatric: Reports anxiety, Denies depression - Endocrine Endocrine: Denies fatigue, Denies weight change - Hematologic/Lymphatic Comment: blood clotting runs in the family, her mother has had DVT, patient tested and unsure - Allergic/Immunologic Comment: multiple allergies Objective - Constitutional General appearance: Present: cooperative - EENT Eyes: Present: EOMI ENT: Present: hearing grossly normal - Neck Neck: Present: normal ROM - Respiratory Respiratory: bilateral: CTA - Cardiovascular Rhythm: regular Heart sounds: normal: S1, S2 - Integumentary Integumentary: Present: normal turgor - Musculoskeletal Musculoskeletal: Present: gait normal - Psychiatric Psychiatric: Present: A&O x's 3, appropriate affect, intact judgment & insight - Additional findings Additional findings: Breast Exam: BRA: 44DD Inspection: bilateral grade 2/3 ptosis, fungal infection under both breast Palpation: Right breast: Well-healed scar from prior surgery, multi-positional exam no dominant masses or nodules of concern Right axilla: No adenopathy of concern Left breast: Multi-positional exam no dominant masses or nodules of concern Left axilla: No adenopathy of concern Assessment and Plan Assessment: Impression: Right breast stage IA invasive ductal carcinoma no evidence of recurrence Recent bilateral mammogram 914 BIRAD 3, the left breast mammogram in 6 months Patient has opted not to take an anti-hormone medication secondary to the symptoms Patient completed radiation therapy December 2019 Fungal infection under both breast Plan: left breast mammogram in 6 months with appointment Patient to follow up for breast examination in 6 months after mammogram Patient a call sooner any questions or concerns Nystatin for fungal infection under both breast CC: Dr. Tamayo
--- NOTE | 2022-11-11 14:42 | MM ---
Reason for Exam: Hx of breast cancer, conservation therapy. Last screening mammogram was performed 12 month(s) ago. Patient History: Menarche at age 16. Patient has no children. Left ovary removed at age 27. Hysterectomy at age 27. Postmenopausal. Breast cancer, right, age 59. Hormonal Contraceptives for 3 years from age 24 until age 27. 07/2019, Lumpectomy on the Right side. 08/14/2019, Malignant Core Biopsy on the right side. 2019, Radiation Therapy on the right side. Maternal cousin had breast cancer, age 30. Maternal aunt had breast cancer, age 60. Prior Study Comparison: 10/15/2019 Bilateral Diagnostic Mammogram, [facility]. 04/22/2020 Left Diagnostic Mammogram, [facility]. 10/16/2020 Bilateral Diagnostic Mammogram, [facility]. 04/21/2021 Right Diagnostic Mammogram, [facility]. 11/03/2021 Bilateral MG 3D diag mammo w/cad ALVIN, [facility]. Tissue Density: The breast tissue is heterogeneously dense. This may lower the sensitivity of mammography. Findings: Analyzed By CAD. Postsurgical and posttreatment changes right breast. Scattered benign round and vascular calcifications are present bilaterally. Focal asymmetry central posterior aspect of the left breast is noted. On additional views, it does not seem to persist on the MLO projection. It becomes less defined on the cc view and resembles older prior studies. Ultrasound is recommended given dense tissues and patient's history. Overall Assessment: Incomplete: need additional imaging evaluation, BI-RAD 0 Management: Diagnostic Breast Ultrasound of the left breast. Electronically signed and approved by: Ángel Grissom M.D. Radiologist
== END | disposition home or self-care (01) ==
LOC: RADMAMWWP 10:51
PROVIDERS: ATTEND Surgery
DX: R92.1 Mammographic calcification found on diagnostic imaging of breast (principal); Z85.3 Personal history of malignant neoplasm of breast; Z80.3 Family history of malignant neoplasm of breast; Z78.0 Asymptomatic menopausal state
CPT/HCPCS: 77062; 77066

== ENCOUNTER → 2022-11-11 | Outpatient (CLI) | payer BC | LOC: WWCWWP 10:47 | PROVIDERS: ATTEND Surgery | DX: Z12.31 Encounter for screening mammogram for malignant neoplasm of breast (principal); Z85.3 Personal history of malignant neoplasm of breast; Z88.0 Allergy status to penicillin; Z91.011 Allergy to milk products; Z91.048 Other nonmedicinal substance allergy status; Z88.8 Allergy status to other drugs, medicaments and biological substances; Z87.891 Personal history of nicotine dependence ==

== ENCOUNTER → 2023-05-13 | Outpatient (CLI) | payer BC ==
[2023-05-13 13:46] VITALS: BP 145/76; PULSE 88; RESP 16; TEMP 98.1
--- NOTE | 2023-05-13 13:50 | P.PN ---
Subjective Progress Note Date: 05/13/23 Principal diagnosis: right breast stage I IDC 05-13-23 Principal diagnosis: 11-11-22 right breast stage IA invasive ductal cancer 08-14-2019 Clementine is a 62-year-old white female who underwent a stereo core biopsy at [facility] 3-D on 1219. This revealed focal atypical ductal hyperplasia. She subsequently underwent a needle local excisional lumpectomy on at [facility]. This revealed invasive well-differentiated ductal carcinoma and margins were all negative. She therefore underwent a sentinel node biopsy on 11/13/2019. [place] node was negative. She was seen by medical oncology and was taking arimidex which the patient stopped secondary to fatigue and decreased muscle strength. It was felt there was no need for chemotherapy. She finished her radiation in December 2019. She did have COVID in January 2020, this presented as fatigue and sinus drainage. She lost her taste and smell but this has returned. She has opted not to take the vaccine. She had a bilateral mammogram on 11-03-21. This was benign BIRADS 2. She is not complaining of any new lumps masses or nodules of concern in either breast. 11-11-22 The patient had a bilateral mammogram performed on . bilateral mammogram reviewed with Dr. Odell. Recommend a repeat left breast mammogram in 6 months. The right breast mammogram is stable as per review with Dr. Grissom. Patient does not complain of any new lumps masses or notches of concern in either breast. 05-13-23 right breast stage IA invasive ductal cancer 08-14-2019 Clementine is a 62-year-old white female who underwent a stereo core biopsy at [facility] 3-D on 1219. This revealed focal atypical ductal hyperplasia. She subsequently underwent a needle local excisional lumpectomy on at [facility]. This revealed invasive well-differentiated ductal carcinoma and margins were all negative. She therefore underwent a sentinel node biopsy on 11/13/2019. [place] node was negative. She was seen by medical oncology and was taking arimidex which the patient stopped secondary to fatigue and decreased muscle strength. It was felt there was no need for chemotherapy. She finished her radiation in December 2019. left breast mammogram on 05-13-23 repeat bilateral mammogra in 6 months, personally reviewed with Dr. Odell last bilateral mammogram 11-11-22; repeat left mammogram in 6 months She is not complaining of any new masses or nodules of concern in either breast. She has been treated for fungal infection under both breast, the nystatin was not working and she is using a different medication as per Dr. Ambriz. Family History: mother: skin cancer, basal cell father: lung cancer, and basal cell skin cancer sister: melanoma, and basal cell cancer patient: basal cell cancer, three on back, shoulder, neck, lip, cervical cancer maternal aunt: breast cancer maternal cousin: dx. at 41, maternal grandmother: colon cancer maternal great aunt: breast cancer Hormonal History: menarche: 15 G0 hysterectomy one ovary left, for cervical cancer at 27 BCP: 4 years hormones: none Surgical history: 1. Hysterectomy 1 ovary left on for cervical cancer at the age of 27 2. Mohs chemosurgery and basal cell carcinoma 4 times 3. [place] teeth removed 4. 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 Medical history: Asthma High cholesterol Hypertension Social History: smoke: one pack per day for 20 years stopped at age 42 Alcohol: Negative Drugs: Negative - Constitutional Constitutional: Denies chills, Denies fever - EENT Eyes: denies blurred vision, denies pain Ears: deny: decreased hearing, tinnitus Ears, nose, mouth and throat: Denies headache, Denies sore throat - Breasts Breasts: bilateral: as per HPI - Cardiovascular Cardiovascular: Reports high blood pressure - Respiratory Comment: asthma former smoker - Gastrointestinal Gastrointestinal: Denies abdominal pain, Denies diarrhea, Denies nausea, Denies vomiting - Genitourinary (Female) Genitourinary: Denies dysuria, Denies hematuria - Menstruation Menstruation: Reports post hysterectomy - Musculoskeletal Comment: arthritis - Integumentary Comment: 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, 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 Integumentary: Denies pruritus, Denies rash - Neurological Neurological: Denies numbness, Denies weakness - Psychiatric Psychiatric: Reports anxiety, Denies depression - Endocrine Endocrine: Denies fatigue, Denies weight change - Hematologic/Lymphatic Comment: blood clotting runs in the family, her mother has had DVT, patient tested and unsure - Allergic/Immunologic Comment: multiple allergies Objective - Vital Signs Vital signs: Intake & Output 05/12/23 05/13/23 05/13/23 18:59 06:59 18:59 Weight 83.007 kg - Constitutional General appearance: Present: cooperative - EENT Eyes: Present: EOMI ENT: Present: hearing grossly normal - Neck Neck: Present: normal ROM - Respiratory Respiratory: bilateral: CTA - Cardiovascular Heart sounds: normal: S1, S2 - Integumentary Integumentary: Present: normal turgor - Musculoskeletal Musculoskeletal: Present: gait normal - Psychiatric Psychiatric: Present: A&O x's 3, appropriate affect, intact judgment & insight - Additional findings Additional findings: Breast Exam: BRA: 44DD Inspection: bilateral grade 2/3 ptosis, fungal infection under both breast improving Palpation: Right breast: Well-healed scar from prior surgery, multi-positional exam no dominant masses or nodules of concern Right axilla: No adenopathy of concern Left breast: Multi-positional exam no dominant masses or nodules of concern Left axilla: No adenopathy of concern Assessment and Plan Assessment: Impression: Right breast stage IA invasive ductal carcinoma no evidence of recurrence Recent bilateral mammogram BIRAD 3, the left breast mammogram in 6 months; done on 05-13-[address] Odell repeat bilateral in 6 months Patient has opted not to take an anti-hormone medication secondary to the symptoms Patient completed radiation therapy December 2019 Fungal infection under both breast treated as per Dr. Tamayo Plan: Bilateral mammogram in 6 months with appointment Patient to follow up for breast examination in 6 months after mammogram Patient a call sooner any questions or concerns fungal infection to be treated as per Dr. Tamayo CC: Dr. Tamayo
== END ==
LOC: WWCWWP 12:58
PROVIDERS: ATTEND Surgery
DX: B36.8 Other specified superficial mycoses (principal); Z85.3 Personal history of malignant neoplasm of breast; Z92.3 Personal history of irradiation; Z80.3 Family history of malignant neoplasm of breast

== ENCOUNTER → 2023-05-13 | Outpatient (CLI) | payer BC ==
--- NOTE | 2023-05-13 13:42 | MM ---
Reason for Exam: Follow-up at short interval from prior study. Last screening mammogram was performed 6 month(s) ago. Patient History: Menarche at age 16. Patient has no children. Left ovary removed at age 27. Hysterectomy at age 27. Postmenopausal. Breast cancer, right, age 59. Hormonal Contraceptives for 3 years from age 24 until age 27. 07/2019, Lumpectomy on the Right side. 08/14/2019, Malignant Core Biopsy on the right side. 2019, Radiation Therapy on the right side. Maternal cousin had breast cancer, age 30. Maternal aunt had breast cancer, age 60. Prior Study Comparison: 04/21/2021 Right Diagnostic Mammogram, [facility]. 11/03/2021 Bilateral MG 3D diag mammo w/cad ALVIN, [facility]. 11/11/2022 Bilateral MG 3D diag mammo w/cad ALVIN, [facility]. Tissue Density: Left: The breasts are heterogeneously dense, which may obscure small masses. Findings: Analyzed By CAD. The questioned area of focal asymmetry posterior central aspect has not persisted. Areas of asymmetric density within the left breast are unchanged. No significant change from prior exams. Overall Assessment: Benign, BI-RAD 2 Management: Diagnostic Mammogram of both breasts in 6 months. Results were given to the patient verbally at the time of exam. Patient should continue monthly self-breast exams. A clinical breast exam by your physician is recommended on an annual basis. This exam should not preclude additional follow-up of suspicious palpable abnormalities. Electronically signed and approved by: Ángel Grissom M.D. Radiologist
== END | disposition home or self-care (01) ==
LOC: RADMAMWWP 12:55
PROVIDERS: ATTEND Surgery
DX: R92.332 Mammographic heterogeneous density, left breast (principal); Z85.3 Personal history of malignant neoplasm of breast; Z80.3 Family history of malignant neoplasm of breast; Z78.0 Asymptomatic menopausal state
CPT/HCPCS: 77061; 77065

== ENCOUNTER → 2023-11-14 | Outpatient (CLI) | payer BC ==
--- NOTE | 2023-11-14 10:04 | MM ---
Reason for Exam: Follow-up at short interval from prior study. Last screening mammogram was performed 12 month(s) ago. Patient History: Menarche at age 16. Patient has no children. Left ovary removed at age 27. Hysterectomy at age 27. Postmenopausal. Breast cancer, right, age 59. Hormonal Contraceptives for 3 years from age 24 until age 27. 07/2019, Lumpectomy on the Right side. 08/14/2019, Malignant Core Biopsy on the right side. 2019, Radiation Therapy on the right side. Maternal cousin had breast cancer, age 30. Maternal aunt had breast cancer, age 60. Prior Study Comparison: 05/05/1992 Screening Mammogram, Unknown. 08/11/1993 Screening Mammogram, Unknown. 02/17/2015 Right Diagnostic Mammogram, [facility]. 02/17/2015 Right Diagnostic Ultrasound, [facility]. 11/20/2018 Bilateral Screening Mammogram, [facility]. 01/17/2019 Right Diagnostic Mammogram, [facility]. 01/17/2019 Right Diagnostic Ultrasound, [facility]. 10/15/2019 Bilateral Diagnostic Mammogram, [facility]. 10/15/2019 Bilateral Diagnostic Ultrasound, [facility]. 04/22/2020 Left Diagnostic Mammogram, [facility]. 04/22/2020 Left Diagnostic Ultrasound, [facility]. 10/16/2020 Bilateral Diagnostic Mammogram, [facility]. 04/21/2021 Right Diagnostic Mammogram, [facility]. 11/03/2021 Bilateral MG 3D diag mammo w/cad ALVIN, [facility]. 11/11/2022 Bilateral MG 3D diag mammo w/cad ALVIN, [facility]. 05/13/2023 Left MG 3D diag mammo w/cad LT, [facility]. Tissue Density: The breasts are extremely dense, which lowers the sensitivity of mammography. Findings: Analyzed By CAD. The pattern is symmetrical. Postsurgical changes are within the upper outer mid right breast. Stable appearing calcifications are present bilaterally. No suspicious groups of microcalcifications, spiculated or lobular masses, architectural distortion or other secondary signs of malignancy are mammographically apparent. Overall Assessment: Benign, BI-RAD 2 Management: Diagnostic Mammogram of both breasts in 1 year. A negative mammogram report should not preclude additional follow up of suspicious palpable abnormalities. Patient should continue monthly self breast exam. A clinical breast exam by your physician is recommended on an annual basis and results should be correlated with mammographic findings. Note on Julita scores and lifetime risk: 1. A Julita score greater than 3% is considered moderate risk. If this is the case, consider specialist referral to assess eligibility for a risk reducing agent. 2. If overall lifetime risk for the development of breast cancer is 20% or higher, the patient may qualify for future screening with alternating mammogram and breast MRI. [facility], , 11/14/2023 10:01 AM. Electronically signed and approved by: Hermann Delgado D.O. Radiologis
== END | disposition home or self-care (01) ==
LOC: RADMAMWWP 09:38
PROVIDERS: ATTEND Surgery
DX: Z85.3 Personal history of malignant neoplasm of breast
CPT/HCPCS: 77062; 77066

== ENCOUNTER → 2023-11-17 | Outpatient (CLI) | payer BC ==
[2023-11-17 13:46] VITALS: BP 130/74; PULSE 67; RESP 17; TEMP 98.3
--- NOTE | 2023-11-17 14:03 | P.PN ---
Subjective Progress Note Date: 11/17/23 05/13/23 Principal diagnosis: right breast stage I IDC 05-13-23 Principal diagnosis: 11-11-22 right breast stage IA invasive ductal cancer 08-14-2019 Clementine is a 62-year-old white female who underwent a stereo core biopsy at [facility] 3-D on 1219. This revealed focal atypical ductal hyperplasia. She subsequently underwent a needle local excisional lumpectomy on at [facility]. This revealed invasive well-differentiated ductal carcinoma and margins were all negative. She therefore underwent a sentinel node biopsy on 11/13/2019. [place] node was negative. She was seen by medical oncology and was taking arimidex which the patient stopped secondary to fatigue and decreased muscle strength. It was felt there was no need for chemotherapy. She finished her radiation in December 2019. She did have COVID in January 2020, this presented as fatigue and sinus drainage. She lost her taste and smell but this has returned. She has opted not to take the vaccine. She had a bilateral mammogram on 11-03-21. This was benign BIRADS 2. She is not complaining of any new lumps masses or nodules of concern in either breast. 11-11-22 The patient had a bilateral mammogram performed on . bilateral mammogram reviewed with Dr. Odell. Recommend a repeat left breast mammogram in 6 months. The right breast mammogram is stable as per review with Dr. Grissom. Patient does not complain of any new lumps masses or notches of concern in either breast. 05-13-23 right breast stage IA invasive ductal cancer 08-14-2019 Clementine is a 62-year-old white female who underwent a stereo core biopsy at [facility] 3D on 1219. This revealed focal atypical ductal hyperplasia. She subsequently underwent a needle local excisional lumpectomy on at [facility]. This revealed invasive well-differentiated ductal carcinoma and margins were all negative. She therefore underwent a sentinel node biopsy on 11/13/2019. [place] node was negative. She was seen by medical oncology and was taking arimidex which the patient stopped secondary to fatigue and decreased muscle strength. It was felt there was no need for chemotherapy. She finished her radiation in December 2019. left breast mammogram on 05-13-23 repeat bilateral mammogra in 6 months, personally reviewed with Dr. Odell last bilateral mammogram 11-11-22; repeat left mammogram in 6 months She is not complaining of any new masses or nodules of concern in either breast. She has been treated for fungal infection under both breast, the nystatin was not working and she is using a different medication as per Dr. Ambriz. 11-17-23 right breast stage IA invasive ductal cancer 08-14-2019 Clementine is a 63-year-old white female who underwent a stereo core biopsy at [facility] 3-D on 1219. This revealed focal atypical ductal hyperplasia. She subsequently underwent a needle local excisional lumpectomy on at [facility]. This revealed invasive well-differentiated ducta l carcinoma and margins were all negative. She therefore underwent a sentinel node biopsy on 11/13/2019. [place] node was negative. She was seen by medical oncology and was taking arimidex which the patient stopped secondary to fatigue and decreased muscle strength. It was felt there was no need for chemotherapy. She finished her radiation in December 2019. Bilateral mammogram on 11-14-23 BIRAD 2 personally reviewed She is not complaining of any new lumps masses or nodules of concern in either breast. The fungal infection under the breast has resolved. She does have some blotchy skin changes over the right breast which she thinks may be residual fungal infection however this may represent some scar tissue in the breast. Family History: mother: skin cancer, basal cell father: lung cancer, and basal cell skin cancer sister: melanoma, and basal cell cancer patient: basal cell cancer, three on back, shoulder, neck, lip, cervical cancer maternal aunt: breast cancer maternal cousin: dx. at 41, maternal grandmother: colon cancer maternal great aunt: breast cancer Hormonal History: menarche: 15 G0 hysterectomy one ovary left, for cervical cancer at 27 BCP: 4 years hormones: none Surgical history: 1. Hysterectomy 1 ovary left on for cervical cancer at the age of 27 2. Mohs chemosurgery and basal cell carcinoma 4 times 3. [place] teeth removed 4. 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 Medical history: Asthma High cholesterol Hypertension Social History: smoke: one pack per day for 20 years stopped at age 42 Alcohol: Negative Drugs: Negative - Constitutional Constitutional: Denies chills, Denies fever - EENT Eyes: denies blurred vision, denies pain Ears: deny: decreased hearing, tinnitus Ears, nose, mouth and throat: Denies headache, Denies sore throat - Breasts Breasts: bilateral: as per HPI - Cardiovascular Cardiovascular: Reports high blood pressure - Respiratory Comment: asthma former smoker - Gastrointestinal Gastrointestinal: Denies abdominal pain, Denies diarrhea, Denies nausea, Denies vomiting - Genitourinary (Female) Genitourinary: Denies dysuria, Denies hematuria - Menstruation Menstruation: Reports post hysterectomy - Musculoskeletal Comment: arthritis - Integumentary Comment: 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, follows with facility practice specialist Integumentary: Denies pruritus, Denies rash - Neurological Neurological: Denies numbness, Denies weakness - Psychiatric Psychiatric: Reports anxiety, Denies depression - Endocrine Endocrine: Denies fatigue, Denies weight change - Hematologic/Lymphatic Comment: blood clotting runs in the family, her mother has had DVT, patient tested and unsure - Allergic/Immunologic Comment: multiple allergies Objective - Vital Signs Vital signs: Vital Signs Temp 98.3 F 11/17/23 13:45 Pulse 67 11/17/23 13:45 Resp 17 11/17/23 13:45 BP 130/74 11/17/23 13:45 Pulse Ox 98 11/17/23 13:45 FiO2 Intake & Output 11/16/23 11/17/23 11/17/23 18:59 06:59 18:59 Weight 82.1 kg - Constitutional General appearance: Present: cooperative - EENT Eyes: Present: EOMI - Neck Neck: Present: normal ROM - Respiratory Respiratory: bilateral: CTA - Cardiovascular Rhythm: regular Heart sounds: normal: S1, S2 - Integumentary Integumentary: Present: normal turgor - Musculoskeletal Musculoskeletal: Present: gait normal - Psychiatric Psychiatric: Present: A&O x's 3, appropriate affect, intact judgment & insight - Additional findings Additional findings: Breast Exam: BRA: 44DD Inspection: bilateral grade 2/3 ptosis, fungal infection under both breast, blotchy skin changes over the right breast at several spots which may represent some residual scarring related to the fungal infection and/or surgery/radiation therapy Palpation: Right breast: Well-healed scar from prior surgery, multi-positional exam no dominant masses or nodules of concern Right axilla: No adenopathy of concern Left breast: Multi-positional exam no dominant masses or nodules of concern Left axilla: No adenopathy of concern Assessment and Plan Assessment: Impression: Right breast stage IA invasive ductal carcinoma no evidence of recurrence Recent bilateral mammogram 11-14-23 BIRAD 2 personally reviewed Patient has opted not to take an anti-hormone medication secondary to the symptoms Patient completed radiation therapy December 2019 Fungal infection under both breast treated as per Dr. Tamayo resolved at this time Plan: Bilateral mammogram in 1 year with appointment Patient to call sooner any questions or concerns CC: Dr. Tamayo
== END ==
LOC: WWCWWP 13:37
PROVIDERS: ATTEND Surgery
DX: R92.8 Other abnormal and inconclusive findings on diagnostic imaging of breast (principal); N60.91 Unspecified benign mammary dysplasia of right breast; R53.83 Other fatigue; M62.81 Muscle weakness (generalized); Z48.817 Encounter for surgical aftercare following surgery on the skin and subcutaneous tissue; Z85.3 Personal history of malignant neoplasm of breast; Z80.3 Family history of malignant neoplasm of breast; Z87.891 Personal history of nicotine dependence; Z92.3 Personal history of irradiation; Z91.09 Other allergy status, other than to drugs and biological substances; Z91.011 Allergy to milk products; Z88.0 Allergy status to penicillin; Z88.8 Allergy status to other drugs, medicaments and biological substances